=== PATIENT | female | born 1935 | race Caucasian/White ===

== ENCOUNTER 2017-05-22 16:55 | Emergency (ER) | payer MEDICARE, OTHER ==
[~2017-05-22] VITALS: Ht 165.1 cm; Wt 74.8 kg
[~2017-05-22 16:55] MED LIST: ACET325 PO; ALBU90OI6 INH; AMOCLA875 PO; ASPI81CH PO; ASPI81EC PO; AZIT250 PO; BENADRYL25 MG PO; CALCA500CH PO; CALCAVITD; CALCIUM; CALCIUM PO; CAPOTEN; CAPT25 PO; CAPT50 PO; CEPH500 PO; COMBIVENT RESPIM4 GM INH; CONESTTC VAG; CYAN100; CYAN1000 PO; DICMIS75EC PO; FAMO20 PO; FISH1000 PO; FLUSAL2505 IH; FLUSAL2505 INH; FURO20 PO; GUAI600T33 PO; Keflex500 MG PO; LEVSOD100 PO; LISI5 PO; Lopressor 25 mg25 MG PO; METPRE4DP PO; MOMENI; MULVITA PO; MYRBETRIQ25 MG PO; Millipred5 MG PO; Multivitamin1 EAC1 PO; NYST100P TOP; OCUVITE EYE +1 EACH PO; OMEG1CAP30 PO; PRED20 PO; SYNTHROID; Sleep Aid25 M1; TAMIFLU6 MG/1 ML PO; TIOT18; TIOT18 INH; TRAM50 PO; TROSPIUM CHLORI20 MG PO; TYLENOL PO; Ultram50 MG PO; VITAMIN B122500 MCG PO; [UNRECOGNIZED DRUG - OTHER] PO
[2017-05-22 18:03] LABS: BASOPHILS ABSOLUTE AUTO 0.02 K/mm3 (0.00-0.23); BASOPHILS PERCENT AUTO 0 % (0-2); EOSINOPHILS ABSOLUTE AUTO 0.02 K/mm3 (0.00-0.68); EOSINOPHILS PERCENT AUTO 0 % (0-6); Hematocrit 39.4 % (33.0-51.0); Hemoglobin 13.3 g/dL (11.5-16.0); IMMATURE GRAN ABSOLUTE AUTO 0.03 K/mm3 (0.00-0.10); IMMATURE GRAN PERCENT AUTO 0 % (0-1); LYMPHOCYTES ABSOLUTE AUTO 0.74 K/mm3 (0.84-5.20); LYMPHOCYTES PERCENT AUTO 8 % (21-46); MONOCYTES ABSOLUTE AUTO 0.76 K/mm3 (0.16-1.47); MONOCYTES PERCENT AUTO 8 % (4-13); Mean Corpuscular HGB 29.9 pg (26.0-34.0); Mean Corpuscular HGB Conc 33.8 g/dL (31.5-36.5); Mean Corpuscular Volume 89 fL (80-100); Mean Platelet Volume 10.4 fL (9.1-12.4); NEUTROPHILS ABSOLUTE AUTO 7.63 K/mm3 (1.96-9.15); NEUTROPHILS PERCENT AUTO 83 % (41-73); Platelet Count 157 K/mm3 (150-400); RDW Coefficient Variation 14.1 % (11.7-14.2); RDW Standard Deviation 45.1 fL (35.1-46.3); Red Blood Cell Count 4.45 M/mm3 (3.80-5.20)
[2017-05-22 18:30] LABS: Troponin I <0.015 ng/mL (0.000-0.040)
[2017-05-22 18:33] LABS: Alanine Aminotransfer (ALT/SGP 37 U/L (12-78); Albumin, Blood 3.5 g/dL (3.4-5.0); Alk Phos 108 U/L (50-136); Anion Gap 9 mmol/L (6-16); Aspartate Aminotrans (AST/SGOT 24 U/L (12-37); Bilirubin, Total 0.9 mg/dL (0.1-1.0); Blood Urea Nitrogen 14 mg/dL (8-24); Bun/Creatinine Ratio 15.4 (12.0-20.0); CO2, Blood 26 mmol/L (21-32); Calcium, Blood 8.8 mg/dL (8.5-10.1); Chloride, Blood 102 mmol/L (98-108); Creatinine, Blood 0.91 mg/dL (0.40-1.00); Globulin, Blood 3.4 g/dL (2.2-4.0); Glomerular Filtration Rate >60 (60-); Glucose, Blood 126 mg/dL (70-99); Potassium, Blood 3.8 mmol/L (3.5-5.5); Sodium, Blood 137 mmol/L (136-145); Total Protein, Blood 6.9 g/dL (6.4-8.2)
[2017-05-22] MEDS ORDERED: Zithromax250 MG PO (19:09)
== END 2017-05-22 19:25 | disposition home or self-care (01) ==
LOC: ER 16:55
PROVIDERS: Emergency Medicine
DX: J44.0 Chronic obstructive pulmonary disease with (acute) lower respiratory infection (principal); J18.9 Pneumonia, unspecified organism; J44.1 Chronic obstructive pulmonary disease with (acute) exacerbation; I11.0 Hypertensive heart disease with heart failure; I50.9 Heart failure, unspecified; E03.9 Hypothyroidism, unspecified; Z88.0 Allergy status to penicillin; Z88.5 Allergy status to narcotic agent; Z88.8 Allergy status to other drugs, medicaments and biological substances; Z79.899 Other long term (current) drug therapy; Z79.82 Long term (current) use of aspirin; Z79.52 Long term (current) use of systemic steroids; Z79.2 Long term (current) use of antibiotics; Z87.891 Personal history of nicotine dependence
CPT/HCPCS: 36415; 71046; 80053; 83880; 84484; 85025; 93005; 93010; 99284; J1100

== ENCOUNTER → 2017-05-27 | Outpatient (CLI) | payer MEDICARE, OTHER ==
[~2017-05-27] MED LIST changes: +Zithromax250 MG PO
[2017-05-27 15:35] LABS: Source, Urine Voided
[2017-05-27 16:44] LABS: Bilirubin, Urine Neg (Neg); Blood, Urine 1+ (Neg); Glucose Qualitative, Urine Neg (Neg); Ketones, Urine 1+ (Neg); Leukocyte Esterase, Urine 3+ (Neg); Nitrite, Urine Neg (Neg); Protein, Urine 2+ (Neg); Specific Gravity, Urine 1.015 (1.003-1.022); Urobilinogen, Urine NORM (Normal)
[2017-05-27 17:13] LABS: Appearance, Urine Hazy (Clear); Color, Urine Yellow (P-Yellow); White Blood Cells, Urine TNTC /hpf (0-5)
[2017-05-27 17:14] LABS: Bacteria Few /hpf; Squamous Epithelial Cells Few /hpf (Few)
== END | disposition home or self-care (01) ==
LOC: LAB 15:33 → LAB SHORT 15:33
PROVIDERS: Internal Medicine
DX: R30.0 Dysuria (principal)
CPT/HCPCS: 81001; 87077; 87086; 87186

== ENCOUNTER → 2017-06-05 | Outpatient (CLI) | payer MEDICARE, OTHER ==
[2017-06-05 13:50] LABS: Source, Urine Clean Catch
[2017-06-05 19:23] LABS: Appearance, Urine Hazy (Clear); Bilirubin, Urine Neg (Neg); Blood, Urine Neg (Neg); Color, Urine Yellow (P-Yellow); Glucose Qualitative, Urine Neg (Neg); Ketones, Urine Neg (Neg); Leukocyte Esterase, Urine 3+ (Neg); Nitrite, Urine Neg (Neg); Protein, Urine 1+ (Neg); Specific Gravity, Urine 1.015 (1.003-1.022); Urobilinogen, Urine NORM (Normal)
[2017-06-05 19:32] LABS: Amorphous Light (0-Heavy); Bacteria Few /hpf; Red Blood Cells, Urine 0-2 /hpf (0-2); Squamous Epithelial Cells Few /hpf (Few)
== END | disposition home or self-care (01) ==
LOC: LAB 13:46 → LAB SHORT 13:46 → EDSTATUS 06-04 09:35 → LAB FUT 06-04 09:35
PROVIDERS: Internal Medicine
DX: N39.0 Urinary tract infection, site not specified (principal)
CPT/HCPCS: 81001

== ENCOUNTER → 2017-06-19 | Outpatient (CLI) | payer MEDICARE, OTHER ==
[2017-06-19 08:41] LABS: Source, Urine Clean Catch
[2017-06-19 11:19] LABS: Bilirubin, Urine Neg (Neg); Blood, Urine Neg (Neg); Glucose Qualitative, Urine Neg (Neg); Ketones, Urine Neg (Neg); Leukocyte Esterase, Urine 1+ (Neg); Nitrite, Urine Neg (Neg); Protein, Urine Neg (Neg); Specific Gravity, Urine 1.015 (1.003-1.022); Urobilinogen, Urine NORM (Normal)
[2017-06-19 11:32] LABS: Appearance, Urine Clear (Clear); Color, Urine Pale Yellow (P-Yellow); Red Blood Cells, Urine Not Seen /hpf (0-2); Squamous Epithelial Cells Few /hpf (Few); Transitional Epithelial Cells Few /hpf (0-Rare)
[2017-06-19 11:33] LABS: Bacteria Mod /hpf
== END | disposition home or self-care (01) ==
LOC: LAB SHORT 08:38 → LAB 08:38
PROVIDERS: Internal Medicine
DX: N39.0 Urinary tract infection, site not specified (principal)
CPT/HCPCS: 81001; 87077; 87086; 87186

== ENCOUNTER 2018-04-24 12:58 | Emergency (ER) | payer MEDICARE, OTHER ==
[~2018-04-24] VITALS: Ht 160 cm; Wt 74.8 kg
[2018-04-24] MEDS ORDERED: CEPH250A PO (13:20)
[2018-04-24] MEDS ORDERED: MYRBETRIQ50 MG PO (13:20)
[2018-04-24] MEDS ORDERED: SPIRIVA RESPIMAT4 GM INH (13:21)
[2018-04-24] MEDS ORDERED: DICLOFENAC-MIS1 EAC3 PO (13:22)
[2018-04-24] MEDS ORDERED: Ventolin/Prove6.7 GM INH (13:23)
[2018-04-24 13:40] LABS: BASOPHILS ABSOLUTE AUTO 0.05 K/mm3 (0.00-0.23); BASOPHILS PERCENT AUTO 1 % (0-2); EOSINOPHILS ABSOLUTE AUTO 0.19 K/mm3 (0.00-0.68); EOSINOPHILS PERCENT AUTO 2 % (0-6); Hemoglobin 13.8 g/dL (11.5-16.0); IMMATURE GRAN ABSOLUTE AUTO 0.03 K/mm3 (0.00-0.10); IMMATURE GRAN PERCENT AUTO 0 % (0-1); LYMPHOCYTES ABSOLUTE AUTO 1.16 K/mm3 (0.84-5.20); LYMPHOCYTES PERCENT AUTO 11 % (21-46); MONOCYTES ABSOLUTE AUTO 0.86 K/mm3 (0.16-1.47); MONOCYTES PERCENT AUTO 8 % (4-13); Mean Corpuscular HGB Conc 33.7 g/dL (31.5-36.5); Mean Corpuscular Volume 92 fL (80-100); Mean Platelet Volume 10.3 fL (9.1-12.4); NEUTROPHILS PERCENT AUTO 78 % (41-73); Platelet Count 251 K/mm3 (150-400); RDW Coefficient Variation 14.4 % (11.7-14.2); RDW Standard Deviation 47.8 fL (35.1-46.3); Red Blood Cell Count 4.45 M/mm3 (3.80-5.20); White Blood Cell Count 10.59 K/mm3 (4.00-11.30)
[2018-04-24 13:59] LABS: Alanine Aminotransfer (ALT/SGP 26 U/L (12-78); Albumin, Blood 3.8 g/dL (3.4-5.0); Albumin/Globulin Ratio 1.1 (0.8-1.8); Alk Phos 93 U/L (50-136); Anion Gap 8 mmol/L (6-16); Aspartate Aminotrans (AST/SGOT 15 U/L (12-37); Bilirubin, Total 0.5 mg/dL (0.1-1.0); Blood Urea Nitrogen 26 mg/dL (8-24); Bun/Creatinine Ratio 22.6 (12.0-20.0); CO2, Blood 25 mmol/L (21-32); Chloride, Blood 105 mmol/L (98-108); Creatinine, Blood 1.15 mg/dL (0.40-1.00); Globulin, Blood 3.4 g/dL (2.2-4.0); Glomerular Filtration Rate 48 (60-); Glucose, Blood 135 mg/dL (70-99); Potassium, Blood 4.1 mmol/L (3.5-5.5); Sodium, Blood 138 mmol/L (136-145); Total Protein, Blood 7.2 g/dL (6.4-8.2); Troponin I <0.015 ng/mL (0.000-0.040)
[2018-04-24 15:50] LABS: Appearance, Urine Clear (Clear); Bilirubin, Urine Neg (Neg); Blood, Urine Neg (Neg); Color, Urine Yellow (P-Yellow); Glucose Qualitative, Urine Neg (Neg); Ketones, Urine 1+ (Neg); Leukocyte Esterase, Urine 2+ (Neg); Nitrite, Urine Neg (Neg); Protein, Urine Neg (Neg); Source, Urine Catheter; Specific Gravity, Urine 1.015 (1.003-1.022); Urobilinogen, Urine NORM (Normal)
[2018-04-24 16:40] LABS: Bacteria Few /hpf; Red Blood Cells, Urine Not Seen /hpf (0-2); Squamous Epithelial Cells Few /hpf (Few); White Blood Cells, Urine 0-2 /hpf (0-5)
== END 2018-04-24 17:37 | disposition home or self-care (01) ==
LOC: ER 12:58
PROVIDERS: Emergency Medicine
DX: E86.0 Dehydration (principal); J44.9 Chronic obstructive pulmonary disease, unspecified; I11.0 Hypertensive heart disease with heart failure; I50.30 Unspecified diastolic (congestive) heart failure; E03.9 Hypothyroidism, unspecified; Z88.0 Allergy status to penicillin; Z88.5 Allergy status to narcotic agent; Z88.1 Allergy status to other antibiotic agents; Z88.8 Allergy status to other drugs, medicaments and biological substances; Z79.899 Other long term (current) drug therapy; Z87.891 Personal history of nicotine dependence; X37 Cataclysmic storm
CPT/HCPCS: 36415; 71046; 80053; 81001; 84484; 85025; 87077; 87086; 87186; 93005; 93010; 96360; 99285-25; J7030

== ENCOUNTER → 2018-12-08 | Outpatient (CLI) | payer MEDICARE, OTHER ==
[~2018-12-08] MED LIST changes: +CEPH250A PO; +DICLOFENAC-MIS1 EAC3 PO; +MYRBETRIQ50 MG PO; +SPIRIVA RESPIMAT4 GM INH; +Ventolin/Prove6.7 GM INH
== END | disposition home or self-care (01) ==
LOC: LAB 12:00 → LAB SHORT 12:00 → LAB FUT 12-02 10:50
DX: R30.0 Dysuria (principal)
CPT/HCPCS: 87077; 87086; 87186

== ENCOUNTER → 2019-01-30 | Outpatient (CLI) | payer MEDICARE, OTHER ==
[2019-01-30 08:41] LABS: Source, Urine Clean Catch
[2019-01-30 11:49] LABS: Bilirubin, Urine Neg (Neg); Blood, Urine Neg (Neg); Glucose Qualitative, Urine Neg (Neg); Ketones, Urine Neg (Neg); Leukocyte Esterase, Urine 2+ (Neg); Nitrite, Urine Neg (Neg); Protein, Urine Neg (Neg); Urobilinogen, Urine NORM (Normal)
[2019-01-30 12:11] LABS: Appearance, Urine Clear (Clear); Color, Urine Yellow (P-Yellow)
[2019-01-30 12:12] LABS: Bacteria Few /hpf; Red Blood Cells, Urine 0-2 /hpf (0-2); Squamous Epithelial Cells Few /hpf (Few); Yeast/Fungi Urine Rare /hpf
== END | disposition home or self-care (01) ==
LOC: LAB 08:36 → LAB SHORT 08:36
PROVIDERS: Internal Medicine
DX: R31.29 Other microscopic hematuria (principal)
CPT/HCPCS: 81001; 87077; 87086; 87186; 88108

== ENCOUNTER → 2019-03-04 | Outpatient (CLI) | payer MEDICARE, OTHER ==
[2019-03-04 11:58] LABS: Source, Urine Clean Catch
[2019-03-04 19:10] LABS: Appearance, Urine Clear (Clear); Bilirubin, Urine Neg (Neg); Blood, Urine Neg (Neg); Color, Urine Yellow (P-Yellow); Glucose Qualitative, Urine Neg (Neg); Ketones, Urine Neg (Neg); Leukocyte Esterase, Urine Neg (Neg); Nitrite, Urine Neg (Neg); Protein, Urine Neg (Neg); Specific Gravity, Urine 1.015 (1.003-1.022); Urobilinogen, Urine NORM (Normal)
== END | disposition home or self-care (01) ==
LOC: LAB 11:57 → LAB SHORT 11:57 → LAB FUT 02-05 12:30
PROVIDERS: Internal Medicine
DX: N39.0 Urinary tract infection, site not specified (principal)
CPT/HCPCS: 81003

== ENCOUNTER → 2019-08-13 | Outpatient (CLI) | payer MEDICARE, OTHER ==
[2019-08-13 13:26] LABS: Leukocyte Esterase, Urine 2+ (Neg); Nitrite, Urine Neg (Neg); Protein, Urine 1+ (Neg); Specific Gravity, Urine 1.015 (1.003-1.022)
[2019-08-13 13:27] LABS: Appearance, Urine Clear (Clear); Bilirubin, Urine Neg (Neg); Blood, Urine Neg (Neg); Color, Urine Yellow (P-Yellow); Glucose Qualitative, Urine Neg (Neg); Ketones, Urine 1+ (Neg); Urobilinogen, Urine NORM (Normal)
[2019-08-13 13:29] LABS: Bacteria Not Seen /hpf; Red Blood Cells, Urine Not Seen /hpf (0-2); Squamous Epithelial Cells Few /hpf (Few)
[2019-08-13 13:30] LABS: Yeast/Fungi Urine Rare /hpf
== END ==
LOC: LAB 09:24 → LAB SHORT 09:24 → LAB FUT 08-11 16:30
PROVIDERS: Internal Medicine
DX: N39.0 Urinary tract infection, site not specified (principal)
CPT/HCPCS: 81001; 87077; 87086; 87186

== ENCOUNTER 2019-09-09 08:35 | Emergency (ER) | payer MEDICARE, OTHER ==
[~2019-09-09] VITALS: Ht 157.5 cm; Wt 74.4 kg
== END 2019-09-09 11:23 | disposition home or self-care (01) ==
LOC: ER 08:35
DX: L98.429 Non-pressure chronic ulcer of back with unspecified severity (principal); R60.0 Localized edema; Z88.0 Allergy status to penicillin; Z88.5 Allergy status to narcotic agent; Z88.8 Allergy status to other drugs, medicaments and biological substances; Z79.899 Other long term (current) drug therapy; Z79.2 Long term (current) use of antibiotics; I11.0 Hypertensive heart disease with heart failure; I50.9 Heart failure, unspecified; J44.9 Chronic obstructive pulmonary disease, unspecified; E03.9 Hypothyroidism, unspecified; Z87.891 Personal history of nicotine dependence
CPT/HCPCS: 76800; 93971; 99284-25

== ENCOUNTER → 2019-09-15 | Outpatient (CLI) | payer MEDICARE, OTHER ==
[2019-09-15 10:11] LABS: Source, Urine Clean Catch
[2019-09-15 12:22] LABS: Appearance, Urine Clear (Clear); Bilirubin, Urine Neg (Neg); Blood, Urine Neg (Neg); Color, Urine Yellow (P-Yellow); Glucose Qualitative, Urine Neg (Neg); Ketones, Urine Neg (Neg); Leukocyte Esterase, Urine Neg (Neg); Nitrite, Urine Neg (Neg); Protein, Urine Neg (Neg); Specific Gravity, Urine 1.005 (1.003-1.022); Urobilinogen, Urine NORM (Normal); pH, Urine 6.5 (5.0-8.0)
== END ==
LOC: LAB SHORT 10:10 → LAB 10:10 → LAB FUT 09-13 08:40
PROVIDERS: Internal Medicine
DX: I10 Essential (primary) hypertension (principal); R06.00 Dyspnea, unspecified; R10.9 Unspecified abdominal pain
CPT/HCPCS: 81003

== ENCOUNTER 2019-11-18 12:03 | Emergency (ER) | payer MEDICARE, OTHER ==
[~2019-11-18] VITALS: Ht 162.6 cm; Wt 70.3 kg
== END 2019-11-18 15:30 | disposition home or self-care (01) ==
LOC: ER 12:03
DX: S81.812A Laceration without foreign body, left lower leg, initial encounter (principal); J44.9 Chronic obstructive pulmonary disease, unspecified; I11.0 Hypertensive heart disease with heart failure; I50.30 Unspecified diastolic (congestive) heart failure; E03.9 Hypothyroidism, unspecified; Z88.0 Allergy status to penicillin; Z88.5 Allergy status to narcotic agent; Z88.1 Allergy status to other antibiotic agents; Z88.8 Allergy status to other drugs, medicaments and biological substances; Z79.899 Other long term (current) drug therapy; Z87.891 Personal history of nicotine dependence; W45.8XXA Other foreign body or object entering through skin, initial encounter
CPT/HCPCS: 99282

== ENCOUNTER 2019-11-23 11:08 | Emergency (ER) | payer MEDICARE, OTHER ==
[~2019-11-23] VITALS: Ht 160 cm; Wt 70.3 kg
[2019-11-23 12:46] LABS: BASOPHILS ABSOLUTE AUTO 0.05 K/mm3 (0.00-0.23); BASOPHILS PERCENT AUTO 1 % (0-2); EOSINOPHILS ABSOLUTE AUTO 0.28 K/mm3 (0.00-0.68); EOSINOPHILS PERCENT AUTO 3 % (0-6); Hematocrit 37.7 % (33.0-51.0); Hemoglobin 12.2 g/dL (11.5-16.0); IMMATURE GRAN ABSOLUTE AUTO 0.05 K/mm3 (0.00-0.10); IMMATURE GRAN PERCENT AUTO 1 % (0-1); LYMPHOCYTES ABSOLUTE AUTO 1.26 K/mm3 (0.84-5.20); LYMPHOCYTES PERCENT AUTO 12 % (21-46); MONOCYTES ABSOLUTE AUTO 0.95 K/mm3 (0.16-1.47); MONOCYTES PERCENT AUTO 9 % (4-13); Mean Corpuscular HGB 31.3 pg (26.0-34.0); Mean Corpuscular HGB Conc 32.4 g/dL (31.5-36.5); Mean Corpuscular Volume 97 fL (80-100); Mean Platelet Volume 10.4 fL (9.1-12.4); NEUTROPHILS ABSOLUTE AUTO 7.85 K/mm3 (1.96-9.15); NEUTROPHILS PERCENT AUTO 75 % (41-73); Platelet Count 244 K/mm3 (150-400); RDW Coefficient Variation 13.9 % (11.7-14.2); RDW Standard Deviation 49.8 fL (35.1-46.3); White Blood Cell Count 10.44 K/mm3 (4.00-11.30)
[2019-11-23 12:54] LABS: Anion Gap 5 mmol/L (6-16); Blood Urea Nitrogen 23 mg/dL (8-24); CO2, Blood 26 mmol/L (21-32); Calcium, Blood 8.9 mg/dL (8.5-10.1); Chloride, Blood 104 mmol/L (98-108); Creatinine, Blood 0.89 mg/dL (0.40-1.00); Glomerular Filtration Rate >60 (60-); Glucose, Blood 104 mg/dL (70-99); Potassium, Blood 4.7 mmol/L (3.5-5.5); Sodium, Blood 135 mmol/L (136-145)
[2019-11-23] MEDS ORDERED: SULTRIDS PO (13:10)
[2019-11-23] MEDS ORDERED: CEPHALEXIN500 M1 PO (13:10)
== END 2019-11-23 13:25 | disposition home or self-care (01) ==
LOC: ER 11:08
PROVIDERS: Emergency Medicine
DX: L03.116 Cellulitis of left lower limb (principal); S81.812A Laceration without foreign body, left lower leg, initial encounter; I11.0 Hypertensive heart disease with heart failure; J44.9 Chronic obstructive pulmonary disease, unspecified; I50.30 Unspecified diastolic (congestive) heart failure; E03.9 Hypothyroidism, unspecified; Z88.0 Allergy status to penicillin; Z88.5 Allergy status to narcotic agent; Z88.1 Allergy status to other antibiotic agents; Z88.8 Allergy status to other drugs, medicaments and biological substances; Z79.51 Long term (current) use of inhaled steroids; Z79.899 Other long term (current) drug therapy; Z87.891 Personal history of nicotine dependence; X58.XXXA Exposure to other specified factors, initial encounter
CPT/HCPCS: 36415; 80048; 85025; 96365; 99283-25; J0690

== ENCOUNTER 2019-11-27 11:02 | Inpatient (IN) | payer MEDICARE, OTHER ==
[~2019-11-27] VITALS: Ht 160 cm; Wt 72.8 kg
[~2019-11-27 11:02] MED LIST changes: -CAPT50 PO; -CEPH250A PO; +CEPHALEXIN500 M1 PO; -FLUSAL2505 INH; +SULTRIDS PO; -Ventolin/Prove6.7 GM INH
[2019-11-27 12:06] LABS: BASOPHILS ABSOLUTE AUTO 0.04 K/mm3 (0.00-0.23); BASOPHILS PERCENT AUTO 0 % (0-2); EOSINOPHILS ABSOLUTE AUTO 0.06 K/mm3 (0.00-0.68); EOSINOPHILS PERCENT AUTO 1 % (0-6); IMMATURE GRAN ABSOLUTE AUTO 0.05 K/mm3 (0.00-0.10); IMMATURE GRAN PERCENT AUTO 0 % (0-1); LYMPHOCYTES ABSOLUTE AUTO 0.68 K/mm3 (0.84-5.20); LYMPHOCYTES PERCENT AUTO 6 % (21-46); MONOCYTES ABSOLUTE AUTO 0.87 K/mm3 (0.16-1.47); MONOCYTES PERCENT AUTO 7 % (4-13); Mean Corpuscular HGB 31.7 pg (26.0-34.0); Mean Corpuscular HGB Conc 33.3 g/dL (31.5-36.5); Mean Corpuscular Volume 95 fL (80-100); Mean Platelet Volume 9.8 fL (9.1-12.4); NEUTROPHILS ABSOLUTE AUTO 10.49 K/mm3 (1.96-9.15); NEUTROPHILS PERCENT AUTO 86 % (41-73); Platelet Count 239 K/mm3 (150-400); RDW Coefficient Variation 13.7 % (11.7-14.2); RDW Standard Deviation 48.1 fL (35.1-46.3); Red Blood Cell Count 3.78 M/mm3 (3.80-5.20); White Blood Cell Count 12.19 K/mm3 (4.00-11.30)
[2019-11-27 12:26] LABS: Albumin, Blood 3.1 g/dL (3.4-5.0); Albumin/Globulin Ratio 0.8 (0.8-1.8); Bilirubin, Total 0.3 mg/dL (0.1-1.0); Bun/Creatinine Ratio 21.1 (12.0-20.0); Calcium, Blood 8.8 mg/dL (8.5-10.1); Creatinine, Blood 1.14 mg/dL (0.40-1.00); Globulin, Blood 3.8 g/dL (2.2-4.0); Potassium, Blood 4.8 mmol/L (3.5-5.5); Total Protein, Blood 6.9 g/dL (6.4-8.2)
[2019-11-27] MEDS ORDERED: CAPT50 PO (16:06)
[2019-11-27] MEDS ORDERED: TRAM50 PO (16:06)
[2019-11-27] MEDS ORDERED: CEPH250A PO (16:06)
[2019-11-27] MEDS ORDERED: INCRUSE ELLIPTA 62.5 INH (16:08)
[2019-11-27] MEDS ORDERED: LEVSOD100 PO (16:09)
[2019-11-27] MEDS ORDERED: FLUT1DIS5 INH (16:09)
[2019-11-27] MEDS ORDERED: Ventolin/Prove6.7 GM INH (16:12)
[2019-11-27] MEDS ORDERED: PRESERVISION A1 EACH PO (16:29)
--- NOTE | 2019-11-27 19:13 | NUR ---
pt admitted to room tonite just prior to shift change. pt a/o pleasant talking to friend . brought coffee for both. she quite appreciative. pt states some pain in hip. lungs clear, resp easy, unlabored. on r.a. h/r reg, no murmer noted. no tele. oriented to room. pt lying in bed call llite in reach, bed in low position, calls approp
[2019-11-28 04:41] LABS: BASOPHILS ABSOLUTE AUTO 0.04 K/mm3 (0.00-0.23); BASOPHILS PERCENT AUTO 0 % (0-2); EOSINOPHILS ABSOLUTE AUTO 0.21 K/mm3 (0.00-0.68); EOSINOPHILS PERCENT AUTO 2 % (0-6); Hematocrit 34.1 % (33.0-51.0); Hemoglobin 11.4 g/dL (11.5-16.0); IMMATURE GRAN ABSOLUTE AUTO 0.03 K/mm3 (0.00-0.10); IMMATURE GRAN PERCENT AUTO 0 % (0-1); LYMPHOCYTES ABSOLUTE AUTO 1.03 K/mm3 (0.84-5.20); LYMPHOCYTES PERCENT AUTO 11 % (21-46); MONOCYTES ABSOLUTE AUTO 1.06 K/mm3 (0.16-1.47); MONOCYTES PERCENT AUTO 11 % (4-13); Mean Corpuscular HGB 31.2 pg (26.0-34.0); Mean Corpuscular HGB Conc 33.4 g/dL (31.5-36.5); Mean Corpuscular Volume 93 fL (80-100); Mean Platelet Volume 10.1 fL (9.1-12.4); NEUTROPHILS ABSOLUTE AUTO 7.16 K/mm3 (1.96-9.15); NEUTROPHILS PERCENT AUTO 75 % (41-73); Platelet Count 220 K/mm3 (150-400); RDW Coefficient Variation 13.5 % (11.7-14.2); RDW Standard Deviation 46.6 fL (35.1-46.3); Red Blood Cell Count 3.65 M/mm3 (3.80-5.20); White Blood Cell Count 9.53 K/mm3 (4.00-11.30)
[2019-11-28 05:02] LABS: Anion Gap 6 mmol/L (6-16); Blood Urea Nitrogen 16 mg/dL (8-24); Bun/Creatinine Ratio 19.6 (12.0-20.0); CO2, Blood 22 mmol/L (21-32); Calcium, Blood 8.5 mg/dL (8.5-10.1); Chloride, Blood 108 mmol/L (98-108); Creatinine, Blood 0.82 mg/dL (0.40-1.00); Glomerular Filtration Rate >60 (60-); Glucose, Blood 84 mg/dL (70-99); Potassium, Blood 4.7 mmol/L (3.5-5.5); Sodium, Blood 136 mmol/L (136-145)
--- NOTE | 2019-11-28 05:50 | NUR ---
SHIFT SUMMARY PT WAS NEW ER ADMIT JUST BEFORE SHIFT CHANGE, A&O, VERY PLEASANT & COOPERATIVE, NO C/O ANY KIND, REDRESSED LLE WOUND AND ADDED PICS TO CHART, PT HAD A TEGADERM OVER WOUND WHICH SHE ASKED TO BE LEFT IN PLACE UNTIL THE "DOCTOR REMOVED IT TOMORROW", STATES THE WOUND IS NOT PAINFUL UNLESS TOUCHED, LLE ELEVEATED T/O THE NIGHT,PT SLEPT WELL & IS SLEEPING AT THIS TIME, CALL LIGHT IN REACH, WILL CONT TO MONITOR UNTIL REPORT GIVEN TO DAY RN.
--- NOTE | 2019-11-28 18:33 | NUR ---
SHIFT SUMMARY MIGUEL VERY PLEASANT THIS SHIFT, GOT TYLENOL FOR PAIN TO GOOD EFFECT, ALSO USING HEAT PACK. SBA TO BR WITH WALKER, CALLING APPROPRIATELY. WOUND ON RLE OPEN TO AIR WITH MEDIPORE OVER IT PER DR LOPES. VERY SCANT DRAINAGE. CONTINENT / SOME URINARY INCONTINENCE. WCTM
--- NOTE | 2019-11-28 19:35 | NUR ---
RECEIVED BEDSIDE REPORT FROM JAMILAH BANUELOS. NO NEEDS AT THIS TIME. WILL MONITOR AND PROVIDE CARE T/O SHIFT. CALL LT IN REACH.
--- NOTE | 2019-11-29 00:44 | NUR ---
FOOT CRADLE PLACED FOR PT COMFORT. CALL LT IN REACH.
--- NOTE | 2019-11-29 04:11 | NUR ---
SHIFT SUMMARY: PT ALERT AND ORIENTED. USES CALL LIGHT APPROPRIATELY. MEDICATED ONCE WITH SCHEDULED TRAMADOL FOR LLE PAIN. PAIN HAD WORSENED AFTER AMBULATING TO THE BATHROOM AND BACK TO BED ASSISTED BY THE SAFE AND VAULT MECHANIC. CONTINUED ABX FOR LLE. PER PT STATES IT'S LOOKING A LOT BETTER. DR WILL EVALUATE AND PROVIDE CARE TO OPENED AREA TODAY PER PT. FOOT CRADLE PLACED TO HOLD BLANKETS OFF FROM LEFT LEG FOR COMFORT. NO ACUTE CHANGES. WILL CONTINUE TO MONITOR AND PROVIDE CARE UNTIL SHIFT REPORT. CALL LT IN REACH.
[2019-11-29] MEDS ORDERED: SULTRIDS PO (12:46)
--- NOTE | 2019-11-29 15:18 | NUR ---
patient dc'd home at 0595 with friend via wheelchair
== END 2019-11-29 14:42 | disposition home health service (06) | DRG 603 ==
LOC: ER 11:02 → MEDS 11:03
PROVIDERS: Family Medicine; Physician Assistant; ADMIT Hospitalist
DX: L03.116 Cellulitis of left lower limb (principal); I50.30 Unspecified diastolic (congestive) heart failure; J44.9 Chronic obstructive pulmonary disease, unspecified; I10 Essential (primary) hypertension; E03.9 Hypothyroidism, unspecified; I11.0 Hypertensive heart disease with heart failure; M19.90 Unspecified osteoarthritis, unspecified site; Z87.891 Personal history of nicotine dependence
CPT/HCPCS: 36415; 73700; 80048; 80053; 83605; 85025; 93005; 93010; 94640; 94760; 96366; 96372; 96375; 96376; 97161; 99285-25; A9270; A9270-GY; G0378; J0690; J1650; J3370

== ENCOUNTER 2019-12-04 11:58 | Day surgery (SDC) | payer MEDICARE, OTHER ==
[~2019-12-04 11:58] MED LIST changes: +CAPT50 PO; +CEPH250A PO; +FLUT1DIS5 INH; +INCRUSE ELLIPTA 62.5 INH; +PRESERVISION A1 EACH PO; +Ventolin/Prove6.7 GM INH
== END 2019-12-04 22:34 | disposition home or self-care (01) ==
LOC: WOUND 11:58
DX: L03.116 Cellulitis of left lower limb (principal); S81.802A Unspecified open wound, left lower leg, initial encounter; I87.2 Venous insufficiency (chronic) (peripheral); J44.9 Chronic obstructive pulmonary disease, unspecified; I73.9 Peripheral vascular disease, unspecified; Z88.5 Allergy status to narcotic agent; Z88.0 Allergy status to penicillin; Z79.899 Other long term (current) drug therapy
CPT/HCPCS: G0463

== ENCOUNTER 2019-12-10 00:14 | Day surgery (SDC) | payer MEDICARE, OTHER | END 2019-12-10 22:54 | disposition home or self-care (01) | LOC: WOUND 00:14 | DX: L03.116 Cellulitis of left lower limb (principal); S81.802A Unspecified open wound, left lower leg, initial encounter; I87.2 Venous insufficiency (chronic) (peripheral); I73.9 Peripheral vascular disease, unspecified; Z79.899 Other long term (current) drug therapy | CPT/HCPCS: G0463 ==

== ENCOUNTER 2019-12-17 00:46 | Day surgery (SDC) | payer MEDICARE, OTHER | END 2019-12-17 12:00 | disposition home or self-care (01) | LOC: WOUND 00:46 | DX: S81.802A Unspecified open wound, left lower leg, initial encounter (principal); I87.2 Venous insufficiency (chronic) (peripheral); I73.9 Peripheral vascular disease, unspecified; I10 Essential (primary) hypertension; E03.9 Hypothyroidism, unspecified; J44.9 Chronic obstructive pulmonary disease, unspecified; Z79.899 Other long term (current) drug therapy; X58.XXXA Exposure to other specified factors, initial encounter ==

== ENCOUNTER 2019-12-24 00:18 | Day surgery (SDC) | payer MEDICARE, OTHER | END 2019-12-24 23:14 | disposition home or self-care (01) | LOC: WOUND 00:18 | DX: L97.822 Non-pressure chronic ulcer of other part of left lower leg with fat layer exposed (principal); I87.2 Venous insufficiency (chronic) (peripheral); I73.9 Peripheral vascular disease, unspecified; I10 Essential (primary) hypertension; E03.9 Hypothyroidism, unspecified; J44.9 Chronic obstructive pulmonary disease, unspecified; Z79.899 Other long term (current) drug therapy | CPT/HCPCS: G0463 ==

== ENCOUNTER 2019-12-31 08:37 | Day surgery (SDC) | payer MEDICARE, OTHER | END 2019-12-31 23:34 | disposition home or self-care (01) | LOC: WOUND 08:37 | DX: L03.116 Cellulitis of left lower limb (principal); I96 Gangrene, not elsewhere classified; L97.822 Non-pressure chronic ulcer of other part of left lower leg with fat layer exposed; I87.2 Venous insufficiency (chronic) (peripheral); I10 Essential (primary) hypertension; E03.9 Hypothyroidism, unspecified; J44.9 Chronic obstructive pulmonary disease, unspecified; H26.9 Unspecified cataract; M19.90 Unspecified osteoarthritis, unspecified site; Z79.52 Long term (current) use of systemic steroids; Z79.51 Long term (current) use of inhaled steroids; Z79.899 Other long term (current) drug therapy; Z87.891 Personal history of nicotine dependence ==

== ENCOUNTER 2020-01-07 00:16 | Day surgery (SDC) | payer MEDICARE, OTHER | END 2020-01-07 23:10 | disposition home or self-care (01) | LOC: WOUND 00:16 | DX: I96 Gangrene, not elsewhere classified (principal); L97.822 Non-pressure chronic ulcer of other part of left lower leg with fat layer exposed; L03.116 Cellulitis of left lower limb; I11.0 Hypertensive heart disease with heart failure; I50.9 Heart failure, unspecified; H26.9 Unspecified cataract; E03.9 Hypothyroidism, unspecified; J44.9 Chronic obstructive pulmonary disease, unspecified; M19.90 Unspecified osteoarthritis, unspecified site; Z88.0 Allergy status to penicillin; Z88.5 Allergy status to narcotic agent; Z91.041 Radiographic dye allergy status; Z79.51 Long term (current) use of inhaled steroids; Z79.2 Long term (current) use of antibiotics; Z79.899 Other long term (current) drug therapy; Z87.891 Personal history of nicotine dependence ==

== ENCOUNTER 2020-01-11 01:19 | Day surgery (SDC) | payer MEDICARE, OTHER | END 2020-01-11 23:06 | disposition home or self-care (01) | LOC: WOUND 01:19 | DX: L97.822 Non-pressure chronic ulcer of other part of left lower leg with fat layer exposed (principal); I87.2 Venous insufficiency (chronic) (peripheral); I73.9 Peripheral vascular disease, unspecified ==

== ENCOUNTER 2020-01-14 00:19 | Day surgery (SDC) | payer MEDICARE, OTHER | END 2020-01-14 22:50 | disposition home or self-care (01) | LOC: WOUND 00:19 | DX: L97.822 Non-pressure chronic ulcer of other part of left lower leg with fat layer exposed (principal); I87.2 Venous insufficiency (chronic) (peripheral); I73.9 Peripheral vascular disease, unspecified; I10 Essential (primary) hypertension; E03.9 Hypothyroidism, unspecified; J44.9 Chronic obstructive pulmonary disease, unspecified; Z79.899 Other long term (current) drug therapy ==

== ENCOUNTER 2020-01-20 03:09 | Day surgery (SDC) | payer MEDICARE, OTHER | END 2020-01-20 23:27 | disposition home or self-care (01) | LOC: WOUND 03:09 | DX: L97.822 Non-pressure chronic ulcer of other part of left lower leg with fat layer exposed (principal); L03.116 Cellulitis of left lower limb; I87.2 Venous insufficiency (chronic) (peripheral); H26.9 Unspecified cataract; J44.9 Chronic obstructive pulmonary disease, unspecified; M19.90 Unspecified osteoarthritis, unspecified site; Z79.51 Long term (current) use of inhaled steroids; Z79.899 Other long term (current) drug therapy; Z88.5 Allergy status to narcotic agent; Z91.041 Radiographic dye allergy status ==

== ENCOUNTER 2020-02-02 00:29 | Day surgery (SDC) | payer MEDICARE, OTHER | END 2020-02-02 22:35 | disposition home or self-care (01) | LOC: WOUND | DX: L03.116 Cellulitis of left lower limb (principal); S51.811A Laceration without foreign body of right forearm, initial encounter; L97.822 Non-pressure chronic ulcer of other part of left lower leg with fat layer exposed; I96 Gangrene, not elsewhere classified; I87.2 Venous insufficiency (chronic) (peripheral); I10 Essential (primary) hypertension; E78.5 Hyperlipidemia, unspecified; M19.90 Unspecified osteoarthritis, unspecified site; H26.9 Unspecified cataract; J44.9 Chronic obstructive pulmonary disease, unspecified; Z88.5 Allergy status to narcotic agent; Z91.041 Radiographic dye allergy status; Z79.899 Other long term (current) drug therapy; X58.XXXA Exposure to other specified factors, initial encounter ==

== ENCOUNTER 2020-02-10 00:24 | Day surgery (SDC) | payer MEDICARE, OTHER | END 2020-02-10 22:45 | disposition home or self-care (01) | LOC: WOUND 00:24 | DX: L03.116 Cellulitis of left lower limb (principal); L97.822 Non-pressure chronic ulcer of other part of left lower leg with fat layer exposed; S51.811D Laceration without foreign body of right forearm, subsequent encounter; I96 Gangrene, not elsewhere classified; I87.2 Venous insufficiency (chronic) (peripheral); I70.202 Unspecified atherosclerosis of native arteries of extremities, left leg; I10 Essential (primary) hypertension; E03.9 Hypothyroidism, unspecified; J44.9 Chronic obstructive pulmonary disease, unspecified; H26.9 Unspecified cataract; M19.90 Unspecified osteoarthritis, unspecified site; Z88.0 Allergy status to penicillin; Z88.5 Allergy status to narcotic agent; Z91.041 Radiographic dye allergy status; Z79.51 Long term (current) use of inhaled steroids; Z79.899 Other long term (current) drug therapy; X58.XXXD Exposure to other specified factors, subsequent encounter ==

== ENCOUNTER 2020-02-17 06:48 | Day surgery (SDC) | payer MEDICARE, OTHER | END 2020-02-17 22:43 | disposition home or self-care (01) | LOC: WOUND 06:48 | DX: L03.116 Cellulitis of left lower limb (principal); S51.811D Laceration without foreign body of right forearm, subsequent encounter; L97.822 Non-pressure chronic ulcer of other part of left lower leg with fat layer exposed; I96 Gangrene, not elsewhere classified; I10 Essential (primary) hypertension; E03.9 Hypothyroidism, unspecified; J44.9 Chronic obstructive pulmonary disease, unspecified; I87.2 Venous insufficiency (chronic) (peripheral); I70.202 Unspecified atherosclerosis of native arteries of extremities, left leg; H26.9 Unspecified cataract; M19.90 Unspecified osteoarthritis, unspecified site; Z91.041 Radiographic dye allergy status; Z88.5 Allergy status to narcotic agent; Z79.51 Long term (current) use of inhaled steroids; Z79.899 Other long term (current) drug therapy; W22.8XXD Striking against or struck by other objects, subsequent encounter ==

== ENCOUNTER 2020-02-24 01:21 | Day surgery (SDC) | payer MEDICARE, OTHER | END 2020-02-24 22:58 | disposition home or self-care (01) | LOC: WOUND 01:21 | DX: L97.822 Non-pressure chronic ulcer of other part of left lower leg with fat layer exposed (principal); L03.116 Cellulitis of left lower limb; S51.801D Unspecified open wound of right forearm, subsequent encounter; I70.202 Unspecified atherosclerosis of native arteries of extremities, left leg; I87.2 Venous insufficiency (chronic) (peripheral); I10 Essential (primary) hypertension; J44.9 Chronic obstructive pulmonary disease, unspecified; E03.9 Hypothyroidism, unspecified ==

== ENCOUNTER 2020-03-02 00:40 | Day surgery (SDC) | payer MEDICARE, OTHER | END 2020-03-02 22:39 | disposition home or self-care (01) | LOC: WOUND 00:40 | DX: L97.822 Non-pressure chronic ulcer of other part of left lower leg with fat layer exposed (principal); S51.801D Unspecified open wound of right forearm, subsequent encounter; I70.202 Unspecified atherosclerosis of native arteries of extremities, left leg; I87.2 Venous insufficiency (chronic) (peripheral); I10 Essential (primary) hypertension; E03.9 Hypothyroidism, unspecified; J44.9 Chronic obstructive pulmonary disease, unspecified; Z79.2 Long term (current) use of antibiotics | CPT/HCPCS: A9270 ==

== ENCOUNTER 2020-03-09 00:23 | Day surgery (SDC) | payer MEDICARE, OTHER | END 2020-03-09 22:45 | disposition home or self-care (01) | LOC: WOUND 00:23 | DX: I96 Gangrene, not elsewhere classified (principal); L97.822 Non-pressure chronic ulcer of other part of left lower leg with fat layer exposed; I70.248 Atherosclerosis of native arteries of left leg with ulceration of other part of lower leg; L03.116 Cellulitis of left lower limb; I87.2 Venous insufficiency (chronic) (peripheral); I10 Essential (primary) hypertension; E03.9 Hypothyroidism, unspecified; J44.9 Chronic obstructive pulmonary disease, unspecified; M19.90 Unspecified osteoarthritis, unspecified site; H26.9 Unspecified cataract; Z88.5 Allergy status to narcotic agent; Z91.041 Radiographic dye allergy status; Z79.51 Long term (current) use of inhaled steroids; Z79.899 Other long term (current) drug therapy; Z79.2 Long term (current) use of antibiotics; Z20.822 Contact with and (suspected) exposure to COVID-19 | CPT/HCPCS: A9270 ==

== ENCOUNTER 2020-03-16 00:42 | Day surgery (SDC) | payer MEDICARE, OTHER | END 2020-03-16 23:07 | disposition home or self-care (01) | LOC: WOUND 00:42 | DX: I96 Gangrene, not elsewhere classified (principal); L97.822 Non-pressure chronic ulcer of other part of left lower leg with fat layer exposed; I70.248 Atherosclerosis of native arteries of left leg with ulceration of other part of lower leg; L03.116 Cellulitis of left lower limb; I87.2 Venous insufficiency (chronic) (peripheral); I10 Essential (primary) hypertension; E03.9 Hypothyroidism, unspecified; J44.9 Chronic obstructive pulmonary disease, unspecified; Z88.5 Allergy status to narcotic agent; Z91.041 Radiographic dye allergy status; Z79.51 Long term (current) use of inhaled steroids; Z79.899 Other long term (current) drug therapy; M19.90 Unspecified osteoarthritis, unspecified site; H26.9 Unspecified cataract | CPT/HCPCS: A9270 ==

== ENCOUNTER 2020-03-23 00:15 | Day surgery (SDC) | payer MEDICARE, OTHER | END 2020-03-23 22:34 | disposition home or self-care (01) | LOC: WOUND 00:15 | DX: L97.822 Non-pressure chronic ulcer of other part of left lower leg with fat layer exposed (principal); I70.202 Unspecified atherosclerosis of native arteries of extremities, left leg; I87.2 Venous insufficiency (chronic) (peripheral); I10 Essential (primary) hypertension; E03.9 Hypothyroidism, unspecified; J44.9 Chronic obstructive pulmonary disease, unspecified | CPT/HCPCS: A9270 ==

== ENCOUNTER → 2020-03-25 | Outpatient (CLI) | payer MEDICARE, OTHER ==
[~2020-03-25] MED LIST changes: +HYDR1TAB94 PO
[2020-03-25 12:26] LABS: Appearance, Urine Clear (Clear); Bilirubin, Urine Neg (Neg); Blood, Urine Neg (Neg); Color, Urine Yellow (P-Yellow); Glucose Qualitative, Urine Neg (Neg); Ketones, Urine Neg (Neg); Leukocyte Esterase, Urine 1+ (Neg); Nitrite, Urine Neg (Neg); Protein, Urine Neg (Neg); Urobilinogen, Urine NORM (Normal)
[2020-03-25 12:44] LABS: Bacteria Not Seen /hpf; Red Blood Cells, Urine 0-2 /hpf (0-2); Squamous Epithelial Cells Not Seen /hpf (Few); White Blood Cells, Urine 0-2 /hpf (0-5)
== END | disposition home or self-care (01) ==
LOC: LAB SHORT 09:14 → LAB 09:14 → LAB FUT 03-23 14:25
PROVIDERS: Internal Medicine
DX: R32 Unspecified urinary incontinence (principal)
CPT/HCPCS: 81001; 87086

== ENCOUNTER 2020-03-30 00:15 | Day surgery (SDC) | payer MEDICARE, OTHER ==
[~2020-03-30 00:15] MED LIST changes: -HYDR1TAB94 PO
== END 2020-03-30 23:45 | disposition home or self-care (01) ==
LOC: WOUND 00:15
DX: L97.825 Non-pressure chronic ulcer of other part of left lower leg with muscle involvement without evidence of necrosis (principal); I70.202 Unspecified atherosclerosis of native arteries of extremities, left leg; I87.2 Venous insufficiency (chronic) (peripheral); I10 Essential (primary) hypertension; J44.9 Chronic obstructive pulmonary disease, unspecified; E03.9 Hypothyroidism, unspecified
CPT/HCPCS: A9270; Q4133

== ENCOUNTER 2020-04-05 10:55 | Day surgery (SDC) | payer MEDICARE, OTHER | END 2020-04-05 22:48 | disposition home or self-care (01) | LOC: WOUND 10:55 | DX: L97.822 Non-pressure chronic ulcer of other part of left lower leg with fat layer exposed (principal); I70.202 Unspecified atherosclerosis of native arteries of extremities, left leg; I73.9 Peripheral vascular disease, unspecified; I10 Essential (primary) hypertension; E03.9 Hypothyroidism, unspecified; J44.9 Chronic obstructive pulmonary disease, unspecified | CPT/HCPCS: A9270 ==

== ENCOUNTER 2020-04-13 01:33 | Day surgery (SDC) | payer MEDICARE, OTHER | END 2020-04-13 22:58 | disposition home or self-care (01) | LOC: WOUND 01:33 | DX: L97.822 Non-pressure chronic ulcer of other part of left lower leg with fat layer exposed (principal); I70.202 Unspecified atherosclerosis of native arteries of extremities, left leg; I87.2 Venous insufficiency (chronic) (peripheral); I10 Essential (primary) hypertension; J44.9 Chronic obstructive pulmonary disease, unspecified | CPT/HCPCS: A9270 ==

== ENCOUNTER → 2020-05-18 | Outpatient (CLI) | payer MEDICARE, OTHER ==
[~2020-05-18] MED LIST changes: +HYDR1TAB94 PO
== END | disposition home or self-care (01) ==
LOC: LAB 17:29 → LAB SHORT 17:29
DX: L08.9 Local infection of the skin and subcutaneous tissue, unspecified (principal); I87.2 Venous insufficiency (chronic) (peripheral); I83.028 Varicose veins of left lower extremity with ulcer other part of lower leg; D48.5 Neoplasm of uncertain behavior of skin; R60.0 Localized edema
CPT/HCPCS: 87070; 87077; 87186; 87205

== ENCOUNTER 2020-05-31 11:03 | Emergency (ER) | payer MEDICARE, OTHER ==
[~2020-05-31] VITALS: Ht 160 cm; Wt 74.8 kg
[~2020-05-31 11:03] MED LIST changes: -HYDR1TAB94 PO
[2020-05-31] MEDS ORDERED: HYDR1TAB94 PO (13:19)
== END 2020-05-31 13:45 | disposition home or self-care (01) ==
LOC: ER 11:03
DX: S01.112A Laceration without foreign body of left eyelid and periocular area, initial encounter (principal); S50.12XA Contusion of left forearm, initial encounter; J44.9 Chronic obstructive pulmonary disease, unspecified; I11.0 Hypertensive heart disease with heart failure; I50.9 Heart failure, unspecified; E03.9 Hypothyroidism, unspecified; Z91.040 Latex allergy status; Z88.5 Allergy status to narcotic agent; Z79.899 Other long term (current) drug therapy; W01.198A Fall on same level from slipping, tripping and stumbling with subsequent striking against other object, initial encounter
CPT/HCPCS: 12002; 70450; 72125; 73080; 99284-25

== ENCOUNTER → 2020-07-05 | Outpatient (CLI) | payer MEDICARE, OTHER ==
[~2020-07-05] MED LIST changes: +HYDR1TAB94 PO
== END ==
LOC: LAB SHORT 10:39 → LAB 10:39
DX: I87.2 Venous insufficiency (chronic) (peripheral) (principal); L08.9 Local infection of the skin and subcutaneous tissue, unspecified
CPT/HCPCS: 87070; 87205

== ENCOUNTER 2021-04-06 07:59 | Emergency (ER) | payer MEDICARE, OTHER ==
[~2021-04-06] VITALS: Ht 165.1 cm; Wt 68.0 kg
== END 2021-04-06 09:41 | disposition home or self-care (01) ==
LOC: ER 07:59
DX: U07.1 COVID-19 (principal); I11.0 Hypertensive heart disease with heart failure; I50.30 Unspecified diastolic (congestive) heart failure; Z87.891 Personal history of nicotine dependence; Z79.899 Other long term (current) drug therapy; Z91.041 Radiographic dye allergy status; Z88.5 Allergy status to narcotic agent
CPT/HCPCS: 71046; 99283-25

== ENCOUNTER → 2021-09-20 | Outpatient (CLI) | payer MEDICARE, OTHER ==
[2021-09-20 18:43] LABS: BASOPHILS ABSOLUTE AUTO 0.07 K/mm3 (0.00-0.23); BASOPHILS PERCENT AUTO 1 % (0-2); EOSINOPHILS ABSOLUTE AUTO 0.51 K/mm3 (0.00-0.68); EOSINOPHILS PERCENT AUTO 5 % (0-6); Hematocrit 41.1 % (33.0-51.0); Hemoglobin 13.4 g/dL (11.5-16.0); IMMATURE GRAN ABSOLUTE AUTO 0.02 K/mm3 (0.00-0.10); IMMATURE GRAN PERCENT AUTO 0 % (0-1); LYMPHOCYTES ABSOLUTE AUTO 1.47 K/mm3 (0.84-5.20); LYMPHOCYTES PERCENT AUTO 15 % (21-46); MONOCYTES ABSOLUTE AUTO 0.89 K/mm3 (0.16-1.47); MONOCYTES PERCENT AUTO 9 % (4-13); Mean Corpuscular HGB 30.3 pg (26.0-34.0); Mean Corpuscular HGB Conc 32.6 g/dL (31.5-36.5); Mean Corpuscular Volume 93 fL (80-100); Mean Platelet Volume 10.8 fL (9.1-12.4); NEUTROPHILS PERCENT AUTO 69 % (41-73); Platelet Count 289 K/mm3 (150-400); RDW Standard Deviation 44.3 fL (35.1-46.3); Red Blood Cell Count 4.42 M/mm3 (3.80-5.20); White Blood Cell Count 9.56 K/mm3 (4.00-11.30)
[2021-09-20 19:22] LABS: Alanine Aminotransfer (ALT/SGP 17 U/L (12-78); Albumin, Blood 4.1 g/dL (3.4-5.0); Albumin/Globulin Ratio 1.4 (0.8-1.8); Alk Phos 105 U/L (50-136); Anion Gap 8 mmol/L (6-16); Aspartate Aminotrans (AST/SGOT 13 U/L (12-37); Bilirubin, Total 0.5 mg/dL (0.1-1.0); Blood Urea Nitrogen 26 mg/dL (8-24); Bun/Creatinine Ratio 28.1 (12.0-20.0); CHOL/HDL RATIO 2.6; CO2, Blood 23 mmol/L (21-32); Calcium, Blood 9.3 mg/dL (8.5-10.1); Chloride, Blood 107 mmol/L (98-108); Cholesterol 180 mg/dL (50-200); Creatinine, Blood 0.93 mg/dL (0.40-1.00); Globulin, Blood 2.9 g/dL (2.2-4.0); Glomerular Filtration Rate 59 (60-); Glucose, Blood 109 mg/dL (70-99); HDL Cholesterol 68 mg/dL (>39); LDL/HDL RATIO 1.3; Low Density Lipoprotein Chol 89 mg/dL (0-110); Potassium, Blood 4.5 mmol/L (3.5-5.5); Sodium, Blood 138 mmol/L (136-145); Thyroid Stimulating Hormone 0.997 uIU/mL (0.360-4.800); Triglycerides 117 mg/dL (30-160); Very Low Density Lipoprot Chol 23 mg/dL (6-32)
== END | disposition home or self-care (01) ==
LOC: LAB 12:22 → LAB SHORT 12:22
PROVIDERS: Physician Assistant
DX: I10 Essential (primary) hypertension (principal); E03.9 Hypothyroidism, unspecified; Z79.899 Other long term (current) drug therapy
CPT/HCPCS: 80053; 80061; 82306; 83036; 84443; 85025

== ENCOUNTER 2021-11-23 08:21 | Inpatient (IN) | payer MEDICARE, OTHER ==
[~2021-11-23] VITALS: Ht 165.1 cm; Wt 65.6 kg
[~2021-11-23 08:21] MED LIST changes: +CEFD300 PO
[2021-11-23 09:15] LABS: Source, Urine Straight Cath
[2021-11-23 09:17] LABS: BASOPHILS PERCENT AUTO 1 % (0-2); EOSINOPHILS PERCENT AUTO 10 % (0-6); Hematocrit 39.1 % (33.0-51.0); IMMATURE GRAN ABSOLUTE AUTO 0.25 K/mm3 (0.00-0.10); IMMATURE GRAN PERCENT AUTO 1 % (0-1); LYMPHOCYTES ABSOLUTE AUTO 1.08 K/mm3 (0.84-5.20); LYMPHOCYTES PERCENT AUTO 5 % (21-46); MONOCYTES ABSOLUTE AUTO 1.97 K/mm3 (0.16-1.47); MONOCYTES PERCENT AUTO 10 % (4-13); Mean Corpuscular HGB 29.7 pg (26.0-34.0); Mean Corpuscular HGB Conc 33.2 g/dL (31.5-36.5); Mean Platelet Volume 10.8 fL (9.1-12.4); NEUTROPHILS ABSOLUTE AUTO 15.17 K/mm3 (1.96-9.15); NEUTROPHILS PERCENT AUTO 74 % (41-73); Platelet Count 261 K/mm3 (150-400); RDW Coefficient Variation 13.3 % (11.7-14.2); RDW Standard Deviation 44.3 fL (35.1-46.3); Red Blood Cell Count 4.37 M/mm3 (3.80-5.20); White Blood Cell Count 20.57 K/mm3 (4.00-11.30)
[2021-11-23 09:20] LABS: Mean Corpuscular Volume 90 fL (80-100)
[2021-11-23 09:23] LABS: Appearance, Urine Clear (Clear); Bilirubin, Urine Neg (Neg); Blood, Urine 2+ (Neg); Color, Urine Yellow (P-Yellow); Glucose Qualitative, Urine Neg (Neg); Ketones, Urine Neg (Neg); Leukocyte Esterase, Urine 1+ (Neg); Nitrite, Urine Neg (Neg); Protein, Urine 2+ (Neg); Urobilinogen, Urine NORM (Normal)
[2021-11-23 09:36] LABS: Albumin/Globulin Ratio 0.7 (0.8-1.8); Bilirubin, Total 0.5 mg/dL (0.1-1.0); Bun/Creatinine Ratio 29.8 (12.0-20.0); Calcium, Blood 8.9 mg/dL (8.5-10.1); Creatinine, Blood 1.14 mg/dL (0.40-1.00); Globulin, Blood 4.1 g/dL (2.2-4.0); Total Protein, Blood 7.1 g/dL (6.4-8.2)
[2021-11-23 09:41] LABS: Bacteria Few /hpf; Red Blood Cells, Urine 0-2 /hpf (0-2); Squamous Epithelial Cells Few /hpf (Few)
[2021-11-23] MEDS ORDERED: ELLIPTA INH (12:35)
[2021-11-23] MEDS ORDERED: FLUT1DIS5 INH (12:35)
[2021-11-23] MEDS ORDERED: CEFDINIR300 M4 PO (15:03)
--- NOTE | 2021-11-23 15:48 | NUR ---
ER ADMIT- PT ARRIVED TO ROOM 335 VIA KELY FROM ED AT 1435. PT A 3 PERSON SLIDE INTO BED. PT PLEASANTLY CONFUSED, ORIENT TO PERSON AND PLACE. PT REPORTS PAIN TO SHOULDERS/LEGS WITH MOVEMENT AND CHRONIC RIGHT FOOT PAIN. LS CLEAR, ON ROOM AIR, BUT DOES REPORT SHE USES OXYGEN AT HOME AT BEDTIME BUT UNSURE OF RATE. HRR. PT WITH ULCER TO SCARAL, DRY FLAKY SKIN TO BLE, BRUISING TO LFA, ABRASION TO LEFT FORHEAD FROM FALL 2 DAYS AGO- PHOTOS TAKEN. PT WITH GENERALIZED WEAKNESS T/O. PT LIVES ALONE AT HOME BUT HAS A FRIEND THAT CHECKS IN WITH HER, FRIEND AT BEDSIDE UPON ARRIVAL TO FLOOR. PT ORIENTED TO ROOM AND CALL SYSTEM, CALL LIGHT IN REACH AND BED ALARM IN PLACE.
--- NOTE | 2021-11-23 17:26 | NUR ---
Spiritual Care Request Pt. is in bed and immeidately welcomes my visit. While notes identify the Pt. as AMS, in my visit the Pt. is pleasant. Pt. is unsettled by the multiple little things medically she is contending with. Pt. is chatty. Rapport is established, and Pt. displays evidence of real and deep linda. Prayed with Pt. as she grabbed my hand. Pt. verbalized gratitude for the spiritual care visit. Will remain available to [facility] Pt.
--- NOTE | 2021-11-24 04:08 | NUR ---
SHIFT SUMMARY; PATIENT IS AO X 3 DURING NOC SHIFT. SHE SLEEPS INTERMITTENTLY. PATIENT COMPLAINS OF LEFT LEG PAIN AND HAS DIFFICULTY ROLLING TO SIDE TO BE PLACED ON BED LAU. PATIENT EXPRESSES THAT SHE WANTS TO GO HOME AND FEELS HER FRIEND CAN TAKE CARE OF HER AT HER HOUSE. PATIENT ALSO SAYS SHE HAS THE FINANCES TO HIRE NURSING CARE TO COME ASSIST HER AT HOME. HER BLOOD PRESSURE IS ELEVATED DURING THE NIGHT AT 157 SYSTOLIC. PATIENT DENIES ANY CP SHE DOES OCMPLAIN OF HER LEFT LEG HURTING. SHE IS CURRENTLY RECEIVING NS AT 125ML/HR. PATIENT IS ABLE TO TAKE HER PO MEDICATIONS WHOLE WITH WATER. WILL CONTINUE TO MONITOR THIS PATIENT CLOSELY FOR ANY WANTS OR NEEDS THAT COME UP PRIOR TO SHIFT CHANGE AND REPORT TO DAY SHIFT RN.
[2021-11-24 05:07] LABS: Hematocrit 31.6 % (33.0-51.0); Hemoglobin 10.7 g/dL (11.5-16.0); Mean Corpuscular HGB 29.6 pg (26.0-34.0); Mean Corpuscular HGB Conc 33.9 g/dL (31.5-36.5); Mean Corpuscular Volume 87 fL (80-100); Mean Platelet Volume 10.4 fL (9.1-12.4); Platelet Count 228 K/mm3 (150-400); RDW Coefficient Variation 13.2 % (11.7-14.2); RDW Standard Deviation 42.6 fL (35.1-46.3); Red Blood Cell Count 3.62 M/mm3 (3.80-5.20); White Blood Cell Count 16.87 K/mm3 (4.00-11.30)
[2021-11-24 09:11] LABS: Albumin, Blood 2.5 g/dL (3.4-5.0); Anion Gap 7 mmol/L (6-16); Blood Urea Nitrogen 23 mg/dL (8-24); Bun/Creatinine Ratio 28.5 (12.0-20.0); CO2, Blood 22 mmol/L (21-32); Calcium, Blood 8.5 mg/dL (8.5-10.1); Chloride, Blood 108 mmol/L (98-108); Creatinine, Blood 0.81 mg/dL (0.40-1.00); Glomerular Filtration Rate 70 (60-); Glucose, Blood 122 mg/dL (70-99); Phosphorus, Blood 2.3 mg/dL (2.5-4.9); Potassium, Blood 3.8 mmol/L (3.5-5.5); Sodium, Blood 137 mmol/L (136-145)
--- NOTE | 2021-11-24 15:39 | NUR ---
PATIENTS CONFUSION HAS INCREASED THROUGH OUT SHIFT, DR TRUJILLO AWARE, PATIENT WAS HAVING AUDIBLE AND VISUAL HALLUCINATIONS. POSITIVE FOR A RIGHT DVT, MINIMAL MOVEMENT IN THE RIGHT KNEE AND SCREAMING IN PAIN WHEN MOVING, RIGHT KNEE IS SWOLLEN MORE THAN THE LEFT KNEE, CALL LIGHT WITH IN REACH
--- NOTE | 2021-11-24 17:03 | NUR ---
REPORTEDTO DR TRUJILLO, PATIENT CONITNUED TO INCREASE WITH AGGRESSIVE BEHAVIOR, PATIENT MOVED TO [address] [place] [address] REPORTED A SMALL DVT THAT IS NOT IN THE POPLETEAL IN THE RIGHT LOWER LEG, REPORTED TO DR TRUJILLO, GAVE REPORT TO CATALINA CACERES RN
--- NOTE | 2021-11-24 17:17 | NUR ---
TRANSFER FROM ROOM 335 TO 346. THIS RN HAS REVIEWED AND AGREES WITH NOTES AND ASSESSMENTS FROM PREVIOUS NURSE.
--- NOTE | 2021-11-24 21:44 | NUR ---
Jb mental health call Jb called wanting to speak with the mental health doctor associated with this pt. Dr. Mckeon is unavailable until Saturday morning. Tried to call back at the phone number Jb left: [phone] but no one answreed and there was no way to leave a message.
--- NOTE | 2021-11-25 04:49 | NUR ---
SHIFT SUMMARY PT IN KAREN VEST AND 4 SIDERAILS RESTRAINTS UPON ARRIVAL. PT FREQUENTLY REQUESTED SCISSORS TO CUT HER RESTRAINTS, AND FREQUENTLY ANNOUNCED HER INTENTION TO GET UP. SHE BELIEVED SHE WAS IN HER OWN ROOM IN HER HOUSE. PT WAS EASILY AGITATED AND REFUSED MOST CARE. SHE DID REJECTD HER IV ABX, BUT WHEN I SWITCHED IT TO PO ABX SHE HESITANTLY TOOK IT IT. RESTRAINTS AT 1800 TODAY. PT'S AGITATION LOWERED T/O THE NIGHT. NO ACUTE CHANGES, VSS. D/C HOME OR PLACEMENT DEPENDING ON RESOLUTION OF CONFUSION AND WEAKNESS.
[2021-11-25 08:51] LABS: BASOPHILS ABSOLUTE AUTO 0.08 K/mm3 (0.00-0.23); BASOPHILS PERCENT AUTO 0 % (0-2); EOSINOPHILS ABSOLUTE AUTO 1.88 K/mm3 (0.00-0.68); EOSINOPHILS PERCENT AUTO 10 % (0-6); Hematocrit 34.1 % (33.0-51.0); Hemoglobin 11.6 g/dL (11.5-16.0); IMMATURE GRAN ABSOLUTE AUTO 0.12 K/mm3 (0.00-0.10); IMMATURE GRAN PERCENT AUTO 1 % (0-1); LYMPHOCYTES ABSOLUTE AUTO 1.72 K/mm3 (0.84-5.20); LYMPHOCYTES PERCENT AUTO 9 % (21-46); MONOCYTES ABSOLUTE AUTO 2.03 K/mm3 (0.16-1.47); MONOCYTES PERCENT AUTO 10 % (4-13); Mean Corpuscular HGB 29.4 pg (26.0-34.0); Mean Corpuscular Volume 87 fL (80-100); Mean Platelet Volume 10.4 fL (9.1-12.4); NEUTROPHILS ABSOLUTE AUTO 13.79 K/mm3 (1.96-9.15); NEUTROPHILS PERCENT AUTO 70 % (41-73); Platelet Count 286 K/mm3 (150-400); RDW Coefficient Variation 13.3 % (11.7-14.2); RDW Standard Deviation 42.3 fL (35.1-46.3); Red Blood Cell Count 3.94 M/mm3 (3.80-5.20); White Blood Cell Count 19.62 K/mm3 (4.00-11.30)
[2021-11-25 09:10] LABS: Albumin, Blood 2.6 g/dL (3.4-5.0); Anion Gap 8 mmol/L (6-16); Blood Urea Nitrogen 17 mg/dL (8-24); CO2, Blood 21 mmol/L (21-32); Calcium, Blood 8.8 mg/dL (8.5-10.1); Chloride, Blood 109 mmol/L (98-108); Creatinine, Blood 0.65 mg/dL (0.40-1.00); Glomerular Filtration Rate 85 (60-); Glucose, Blood 106 mg/dL (70-99); Phosphorus, Blood 2.8 mg/dL (2.5-4.9); Potassium, Blood 3.8 mmol/L (3.5-5.5); Sodium, Blood 138 mmol/L (136-145)
--- NOTE | 2021-11-25 16:32 | NUR ---
SHIFT SUMMARY PT TAKEN OUT OF RESTRAINTS THIS AM. PT FORGETFUL BUT PLEASANT & COOPERATIVE T/O SHIFT. USES CALL LIGHT APPROPRIATELY. BED ALARM IN PLACE. MD NOTIFIED THAT IV WENT BAD. NO IV ACCESS ORDER OBTAINED. ALSO NOTIFED THAT IT HAD BEEN SEVERAL DAYS WITHOUT A BM. ORDERED PLACED PER . PT WORKING WITH PHYSICAL THERAPY AND GOT UP TO CHAIR TODAY WITH 2P ASSIST. NO OTHER ACUTE CHANGES IN ASSESSMENT AT THIS TIME.
--- NOTE | 2021-11-26 03:58 | NUR ---
SUMMARY: PATIENT VERY PLEASANT THROUGH THE NIGHT. SLIGHTLY DISORIENTED AT BEGINING OF SHIFT STATING SHE NEEDED TO GO HOME BECAUSE HER FRIEND KETAN WOULD BE CHECKING ON HER AT HER HOUSE AND SHE WOULDN'T BE THERE. CALLED PATIENT FRIEND IN ROOM BEFORE BED TO LET HER KNOW SHE WAS IN THE HOSPITAL TO HELP EASE PATIENT ANXIETY. PATIENT EASILY REORIENTED AFTER CALL AND WAS COOPERATIVE THE REST OF SHIFT. PATIENT TOOK MEDS WHOLE AND WAS TURNED IN BED Q2 HOUR TO PREVENT SKIN BREAKDOWN. PATIENT DID NOT ATTEMPT TO GET UP WITHOUT ASSISTANCE.
--- NOTE | 2021-11-26 17:26 | NUR ---
SHIFT SUMMARY PT REQUIRING 2P FOR TRANSFERS AT THIS TIME. PT TALKS ABOUT LEAVING TO GO HOME TOMORROW, HOPEFULLY. PT CURRENTLY RESTING IN BED. CALL LIGHT IN REACH. SEE EMAR FOR PAIN CUPOLA MELTING SUPERVISOR. PLAN FOR PHYSICAL THERAPY TO WORK MORE WITH PT TOMORROW TO DETERMINE FURTHER PLAN OF CARE PER DR. SCOTT. NO OTHER ACUTE CHANGES IN ASSESSMENT AT THIS TIME. VS REVIEWED.
--- NOTE | 2021-11-27 04:03 | NUR ---
SUMMARY: PATIENT SLIGHTLY CONFUSED ABOUT WHERE SHE IS. QUICKLY REORIENTED TO PLACE. NO ACUTE EVENTS OVER NIGHT. UP TO COMMODE 2 PERSON MAX ASSIST. PAUL VOICING CONCERNS THAT SHE IS READY TO LEAVE BUT IS STILL VERY WEAK. VSS. TURNED PATIENT Q2 HOURS THROUGHOUT THE NIGHT.
--- NOTE | 2021-11-27 18:27 | NUR ---
PATIENT HAS BEEN ALERT AND ORIENTATED TO SELF. ABLE TO MAKE NEEDS KNOWN. SHE SITS UP IN THE CHIAR FOR MEALS WHEN DESIRED. PATIENT HAS NO PAIN. SHE DENIES SOB, LS HAVE SOME SCATTERED CRACKLES IN BASES. URINE STILL DARK AND FOUL SMELLING BUT SHE HAS NOT COMPLAINED OF PAIN OR BURNING DURING URINATION. [facility]
--- NOTE | 2021-11-28 03:53 | NUR ---
SUMMARY: PATIENT SLIGHTLY AGITATED AT SHIFT CHANGE REQUESTING THAT WE LET HER CALL A CAB TO GO HOME. REASSURED PATIENT THAT SHE WOULD BE STAYING IN THE HOSPITAL FOR THE NIGHT. CALLED PATIENT FRIEND KETAN AND SHE ALSO WAS HELPFUL AND TOLD THE PATIENT SHE SHOULD STAY IN THE HOSPITAL. PATIENT COOPERATIVE AND PLEASANT THE REMAINDER OF THE SHIFT. PATIENT VOIDED TWICE. URINE WITH SLIGHT ODOR. NO ACUTE MEDICAL EVENTS OVERNIGHT. VSS. TURNED PATIENT Q2 HOURS.
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
--- NOTE | 2021-11-28 19:05 | NUR ---
PATIENT WAS LABILE THIS SHIFT. SHE WAS DETERMINED THAT SHE WAS LEAVING AND WHEN SHE FOUND OUT THAT SHE WASN'T, SHE BECAME VULGAR WITH LANGUAGE. THERE IS A CONSULT FOR DR. RIVERA IN THE SYSTEM. DR. Macias STATED THAT HE WOULD SEE THIS PATIENT TOMORROW.
--- NOTE | 2021-11-29 04:17 | NUR ---
Summary: Patient was oriented for majority of shift overnight. Assisted patient to commode with two person assist. Changed foam dressing on patient sacrum. No acute events over night. Patient urine still with an odor. VSS. Patient did slightly better ambulating to commode than last night. Patient still very weak and needs a lot of assistance ambulating. Turned patient in bed [id number].
[2021-11-29 07:58] LABS: Hemoglobin 10.8 g/dL (11.5-16.0); Mean Corpuscular HGB Conc 33.8 g/dL (31.5-36.5); Mean Corpuscular Volume 86 fL (80-100); Mean Platelet Volume 10.4 fL (9.1-12.4); Platelet Count 296 K/mm3 (150-400); RDW Coefficient Variation 13.5 % (11.7-14.2); RDW Standard Deviation 42.4 fL (35.1-46.3); Red Blood Cell Count 3.72 M/mm3 (3.80-5.20); White Blood Cell Count 17.35 K/mm3 (4.00-11.30)
[2021-11-29 08:17] LABS: Bun/Creatinine Ratio 31.4 (12.0-20.0); Calcium, Blood 8.7 mg/dL (8.5-10.1); Creatinine, Blood 0.86 mg/dL (0.40-1.00)
--- NOTE | 2021-11-29 18:12 | NUR ---
SHIFT SUMMARY PT IS A&OX 2-3 AND COOPERATIVE OF CARE. PT HAD NO C/O PAIN TODAY. PT WORKED WITH OT AND PT TODAY. PT WAS ABLE TO GET UP TO CHAIR FOR MEALS. PT HAD HOLD PLACED TODAY AND PT VERBALIZED DISAGREEMENT WITH DECISION AND APPEARED UPSET BY THE NEWS. PT HAD VISITORS DURING AFTERNOON. BED IN LOWEST POSITION AND CALL LIGHIT IN REACH.
--- NOTE | 2021-11-30 04:45 | NUR ---
SHIFT SUMMARY PATIENT IS ALERT AND ORIENTED 2-3X. PATIENT HAS BEEN COOPERATIVE WITH CARE THIS SHIFT. PATIENT HAS HAD NO ACUTE EVENTS THIS SHIFT. PATIENT HAS HAD NO COMPLAINTS OF PAIN, NAUSEA, VOMITTING OR SOB THIS SHIFT. PATIENT IS ON A 2MD HOLD. PATIENT HAS BEEN SLEEPING MOST OF SHIFT. BED IN LOCKED AND LOWEST POSITION. CALL LIGHT IN PLACE. WILL MONITOR UNTIL SHIFT CHANGE.
--- NOTE | 2021-11-30 18:44 | NUR ---
SHISFT SUMMARY BOTH NEIGHBOR AND FINANCIAL HELPER CAME IN TODAY AND THE HOLD WAS EXPLAINED. PT IS VERY UNHAPPY WITH THE DECISION. STILL CONFUSED, AX0 2. PT HAS A POOR APPETITE AND IS SIPPING ONLY A LITTLE BIT OF WATER. BED IS IN LOWEST POSITION AND CALLL LIGHT IN REACH.
--- NOTE | 2021-12-01 03:59 | NUR ---
REMOTE MONITORING IN PLACE. ORDER FOR NO IV ACCESS. STAGE 2 PRESSURE ULCER ON SACRUM. PT IS a&O X 2-3, REQUIRING FREQUENT REORIENTATION. SHE IS PLEASANT WITH STAFF AND COOPERATIVE WITH CARE. SLEPT MOST OF THE SHIFT. NO ACUTE CHANGES. AWAITING PLACEMENT. BED IN LOWEST POSITION. RN WILL CONTINUE TO MONITOR UNTIL SHIFT CHANGE.
--- NOTE | 2021-12-01 05:53 | NUR ---
MIGUEL WAS HALLUCINATING ABOUT A MAN IN HIS "UPPER 80'S" THAT "CAME TO THE HOUSE, BUT HE DIDN'T EXPECT YOU PEOPLE." SHE ASKED THE NURSE, "WOULD YOU TRY TO MAKE HIM COMFORTABLE FOR ME?" PT WAS EASILY REASSURED AND WENT BACK TO SLEEP.
--- NOTE | 2021-12-01 19:47 | NUR ---
END OF SHIFT SUMMARY: PATIENT DENIED PAIN THROUGHOUT THE SHIFT. PATIENT UP TO THE CHAIR AND BATHROOM. PATIENT WORKED WITH PT. PATIENT IS A MAX ASSIST WITH TWO PEOPLE. PATIENT CALM AND PLEASANT WITH STAFF. PATIENT ALERT AND ORIENTED X 2. PATIENT FOLLOWING DIRECTIONS AND ANSWERING QUESTIONS APPROPRIATELY. NO HALLUCINATIONS WITNESSED OR REPORTED. PATIENT REPORTED SOME FEELINGS OF VERTIGO THIS AM THAT LASTED ABOUT 1 HOUR. PATIENT REPORTED THAT THIS OCCURS AT HOME. PATIENT EXPERIENCED THE VERTIGO WHETHER SITTING, STANDING OR LYING DOWN. VITALS STABLE AND RESPONDED APPROPRIATELY TO POSTURAL CHANGES (SEE VITALS).
--- NOTE | 2021-12-02 04:31 | NUR ---
SHIFT SUMMARY 86 YR F ADMITTED ON 11/23/21 FOR UTI/SEPSIS. FULL CODE. NO ACUTE CHANGES THIS SHIFT. PT WAS CONFUSED AT BEGINNING OF SHIFT AND ASKED IF SHE WAS AT "[facility]". IT WAS EXPLAINED TO HER THAT SHE IS IN THE HOSPITAL AND SHE ACTED SURPRISED. SHE HAS SLEPT FOR NEARLY ALL OF THIS SHIFT AND HAS NOT BEEN TRYING TO GET OUT OF BED W/O ASSISTANCE.
--- NOTE | 2021-12-02 18:26 | NUR ---
END OF SHIFT SUMMARY: PATIENT EXPERIENCED MORE CONFUSION TODAY. PATIENT HAD PERIODS OF BEING CALM AND COOPERATIVE WITH STAFF AND PERIODS OF YELLING AT THEM FOR NOT TAKING HER "DOWN TO THE FIRST FLOOR LOBBY AND LEAVING HER THERE". PATIENT REPORTED SOME ABDOMINAL PAIN THAT RESOLVED ONCE SHE AGREED TO EAT SOMETHING. PATIENT UP TO THE CHAIR AND RECLINER. PATIENT UP WITH 1-2 ASSIST WITH FWW AND GAIT BELT. PATIENT HAS A VERY MINIMAL APPETITE.
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
--- NOTE | 2021-12-03 17:08 | NUR ---
SHIFT SUMMARY; PATIENT VERY CONFRONTATIONAL DURING DAY SHIFT. SHE REFUSED AM MEAL. DID TAKE AM MEDS BUT REFUSED 1800 [place] SAYS SHE DOES NOT NEED IT. VITAL SIGNS ARE STABLE. B/P IS SLIGHTLY LOW AT 99 SYSTOLIC. SHE DENIES ANY CP OR PRESSURE. PATIENT REMAINS IN BED DURING DAY SHIFT. DOES EAT LUNCH AND DINNER TODAY. FRIEND DID VISIT HER TODAY AND PATIENT WAS CALM AND DID HAVE WHAT APPEARS TO BE NORMAL INTERACTIONS AND ABLE TO CARRY ON CONVERSATION WITH HER FRIEND.
--- NOTE | 2021-12-04 05:37 | NUR ---
SHIFT SUMMARY PT AOX3, COOPERATIVE WITH CARE AND PLEASANT TONIGHT. SLIGHTLY HYPOTENSIVE TONIGHT, 92/50 AT 19:40, IMPROVED TO 116/49 AT 04:20. PT SLEPT COMFORTABLY THROUGH THE NIGHT, NO C/O PAIN OR NAUSEA. NO ATTEMPTS TO GET OUT OF BED W/O ASSISTANCE, NO VERBAL HARASSMENT OF STAFF.
--- NOTE | 2021-12-04 18:01 | NUR ---
PT FLUCTUATES BETWEEN A&O X 2-3 PARANOID AND ANXIOUS AT TIMES. REDIRECTS AND OBEYS COMMANDS. PT LUNGS CTA ALL LUNG TURNER. DENIES CP OR SOB. ALL DRESSINGS ON WOUNDS ARE CLEAN, INTACT, AND DRY. PT IS CURRENTLY ON A 2MD HOLD FOR GAURDIANSHIP ISSUES AND SAFETY ISSUES FOR D/C RELATED TO WEAKNESS AND VARYING ORIENTATION STATUS. P/T WAS ABLE TO STAND AND PIVOT PT 1P ASSIST WITH A WALKER TO BEDSIDE CHAIR. BED IN THE LOWEST POSITION, CALL LIGHT WITHIN REACH, CALLS APPRO
--- NOTE | 2021-12-04 18:08 | NUR ---
REVIEWED AND DISCUSSED STUDENT NOTES AND ASSESSMENT. I AGREE.
--- NOTE | 2021-12-04 18:39 | NUR ---
PT DEMANDED TO GO HOME. PUT GAIT BELT ON PT. AND SHE STOOD. WALKED WITH FWW TO DOOR OF ROOM. AT THIS POINT, SHE STATES EXHAUSTED. WANTED TO GO BACK TO BED. PT AMBULATED WITH ASST TO BED. AGREED TO LIE DOWN. PT BACK TO BED. BED IN LOW POSITION, CALL LITE IN REACH. BED ALARM ON FOR SAFETY
[2021-12-05 05:47] LABS: Hematocrit 33.6 % (33.0-51.0); Hemoglobin 11.3 g/dL (11.5-16.0); Mean Corpuscular HGB 28.8 pg (26.0-34.0); Mean Corpuscular HGB Conc 33.6 g/dL (31.5-36.5); Mean Corpuscular Volume 86 fL (80-100); Mean Platelet Volume 10.9 fL (9.1-12.4); Platelet Count 297 K/mm3 (150-400); RDW Coefficient Variation 13.5 % (11.7-14.2); RDW Standard Deviation 42.3 fL (35.1-46.3); Red Blood Cell Count 3.92 M/mm3 (3.80-5.20); White Blood Cell Count 20.53 K/mm3 (4.00-11.30)
[2021-12-05 06:20] LABS: Albumin, Blood 2.6 g/dL (3.4-5.0); Anion Gap 8 mmol/L (6-16); Blood Urea Nitrogen 26 mg/dL (8-24); Bun/Creatinine Ratio 26.4 (12.0-20.0); CO2, Blood 23 mmol/L (21-32); Chloride, Blood 108 mmol/L (98-108); Creatinine, Blood 0.98 mg/dL (0.40-1.00); Glomerular Filtration Rate 56 (60-); Glucose, Blood 95 mg/dL (70-99); Phosphorus, Blood 3.7 mg/dL (2.5-4.9); Potassium, Blood 4.3 mmol/L (3.5-5.5); Sodium, Blood 139 mmol/L (136-145)
--- NOTE | 2021-12-05 07:26 | NUR ---
SHIFT SUMMARY: PT A/O X 2-3, ONE ASSIST WITH WALKER/GB. PT WAS AGITATED AT START OF SHIFT BUT ONCE SHE WAS RE-ORIENTED TO SITUATION, SHE BECAME PLEASANT AND COOPERATIVE WITH CARE. PT SLEPT THROUGH THE NIGHT. SHE EASILY AWOKE FOR MEDICATIONS AND LABS AND WAS PLEASANT WITH INTERACTION. WBC ELEVATED TODAY. NO OTHER CONCERNS.
--- NOTE | 2021-12-05 14:03 | NUR ---
Spiritual Care Visit. Pt. is awake and welcomes me in the room. Pt. is pleasant but mildly unsettled about her medical prognosis. Pt. displays evidence of engagement and awareness of her life and community relaitonships. Re-establish rapport. Facilitated a life review, and Pt. was enagaged for quite some time. Pt. displayed some evidence of lonliness, and it became evident when she verbalized what the visit meant to her. Prayed with Pt. Pt. verbalized gratitude for the spiritual care visit. Pt. asked for this manual machinist's business card. Left her my name and office #.
--- NOTE | 2021-12-05 17:11 | NUR ---
Shift Summary A/O only to self. Denies pain. Refusing meds this afternoon. Attempted to give bowel meds, but patient refused. Explained to patient last bm was 12/01, patient still refused and responded with "Why do I need to take any medications when I'm going to soon anyway? That's a good question huh?" Also refusing to eat meals or drink fluids. Assisted patient in calling friend (Rona). Overheard patient telling Rona to "come and get me right now. They have me locked in here and won't let me out." Worked with therapy, sat in chair for breakfast and lunch, ate minimally.
[2021-12-06 05:56] LABS: BASOPHILS PERCENT AUTO 1 % (0-2); EOSINOPHILS ABSOLUTE AUTO 1.96 K/mm3 (0.00-0.68); EOSINOPHILS PERCENT AUTO 9 % (0-6); Hemoglobin 11.4 g/dL (11.5-16.0); IMMATURE GRAN ABSOLUTE AUTO 0.22 K/mm3 (0.00-0.10); IMMATURE GRAN PERCENT AUTO 1 % (0-1); LYMPHOCYTES ABSOLUTE AUTO 1.69 K/mm3 (0.84-5.20); LYMPHOCYTES PERCENT AUTO 8 % (21-46); MONOCYTES ABSOLUTE AUTO 1.79 K/mm3 (0.16-1.47); MONOCYTES PERCENT AUTO 8 % (4-13); Mean Corpuscular HGB 28.7 pg (26.0-34.0); Mean Corpuscular HGB Conc 33.5 g/dL (31.5-36.5); Mean Corpuscular Volume 86 fL (80-100); NEUTROPHILS ABSOLUTE AUTO 16.06 K/mm3 (1.96-9.15); NEUTROPHILS PERCENT AUTO 74 % (41-73); Platelet Count 290 K/mm3 (150-400); RDW Coefficient Variation 13.6 % (11.7-14.2); RDW Standard Deviation 42.8 fL (35.1-46.3); Red Blood Cell Count 3.97 M/mm3 (3.80-5.20); White Blood Cell Count 21.82 K/mm3 (4.00-11.30)
[2021-12-06 06:20] LABS: Albumin, Blood 2.5 g/dL (3.4-5.0); Anion Gap 7 mmol/L (6-16); Blood Urea Nitrogen 24 mg/dL (8-24); Bun/Creatinine Ratio 24.5 (12.0-20.0); CO2, Blood 25 mmol/L (21-32); Calcium, Blood 8.5 mg/dL (8.5-10.1); Chloride, Blood 106 mmol/L (98-108); Creatinine, Blood 0.98 mg/dL (0.40-1.00); Glomerular Filtration Rate 56 (60-); Glucose, Blood 106 mg/dL (70-99); Phosphorus, Blood 3.5 mg/dL (2.5-4.9); Potassium, Blood 4.5 mmol/L (3.5-5.5); Sodium, Blood 138 mmol/L (136-145)
[2021-12-06 11:47] LABS: Source, Urine Straight Cath
[2021-12-06 11:49] LABS: Appearance, Urine Clear (Clear); Bilirubin, Urine Neg (Neg); Blood, Urine 1+ (Neg); Color, Urine Yellow (P-Yellow); Glucose Qualitative, Urine Neg (Neg); Ketones, Urine Neg (Neg); Leukocyte Esterase, Urine 3+ (Neg); Nitrite, Urine Neg (Neg); Protein, Urine Neg (Neg); Specific Gravity, Urine 1.015 (1.003-1.022); Urobilinogen, Urine NORM (Normal)
[2021-12-06 12:09] LABS: Bacteria Mod /hpf; Transitional Epithelial Cells Few /hpf (0-Rare)
[2021-12-06 12:11] LABS: Red Blood Cells, Urine 0-2 /hpf (0-2); Squamous Epithelial Cells Few /hpf (Few)
--- NOTE | 2021-12-06 18:17 | NUR ---
Shift Summary A/O to self and friend. Knows she is in the hospital and Alex is president, but nothing else. Rona (friend) visited which seems to bring patient comfort. Cooperative with meds today. Refusing meals citing lack of appetite. Up in recliner for meals and back to bed afterward.
--- NOTE | 2021-12-07 03:34 | NUR ---
SHIFT SUMMARY NO COMPLAINTS FROM THIS PT AT THIS TIME. PT HAS BEEN MOSTLY PLEASANT WITH THIS RN, BUT HAS BEEN IRRITABLE WITH OTHER STAFF MEMBERS. PT IS A 2 PERSON ASSIST TO THE BEDSIDE COMMODE. PT HAS CALL LIGHT WITHIN HER REACH. PT MEDICATED PER EMAR FOR HIP PAIN EARLIER THIS SHIFT.
--- NOTE | 2021-12-07 05:23 | NUR ---
NOTE PT REFUSED MORNING LABS AND MEDICATIONS. PT ALSO REFUSED HER MORNING VITAL SIGNS.
[2021-12-07 09:44] LABS: BASOPHILS ABSOLUTE AUTO 0.12 K/mm3 (0.00-0.23); BASOPHILS PERCENT AUTO 1 % (0-2); EOSINOPHILS ABSOLUTE AUTO 2.07 K/mm3 (0.00-0.68); EOSINOPHILS PERCENT AUTO 9 % (0-6); Hematocrit 36.8 % (33.0-51.0); Hemoglobin 12.2 g/dL (11.5-16.0); IMMATURE GRAN ABSOLUTE AUTO 0.25 K/mm3 (0.00-0.10); IMMATURE GRAN PERCENT AUTO 1 % (0-1); LYMPHOCYTES ABSOLUTE AUTO 1.75 K/mm3 (0.84-5.20); LYMPHOCYTES PERCENT AUTO 7 % (21-46); MONOCYTES ABSOLUTE AUTO 1.92 K/mm3 (0.16-1.47); MONOCYTES PERCENT AUTO 8 % (4-13); Mean Corpuscular HGB 28.4 pg (26.0-34.0); Mean Corpuscular HGB Conc 33.2 g/dL (31.5-36.5); Mean Corpuscular Volume 86 fL (80-100); NEUTROPHILS PERCENT AUTO 75 % (41-73); Platelet Count 274 K/mm3 (150-400); RDW Coefficient Variation 13.5 % (11.7-14.2); RDW Standard Deviation 42.4 fL (35.1-46.3); White Blood Cell Count 23.91 K/mm3 (4.00-11.30)
[2021-12-07 10:15] LABS: Albumin, Blood 2.8 g/dL (3.4-5.0); Anion Gap 6 mmol/L (6-16); Blood Urea Nitrogen 32 mg/dL (8-24); Bun/Creatinine Ratio 32.1 (12.0-20.0); CO2, Blood 26 mmol/L (21-32); Chloride, Blood 106 mmol/L (98-108); Glomerular Filtration Rate 54 (60-); Glucose, Blood 107 mg/dL (70-99); Phosphorus, Blood 3.7 mg/dL (2.5-4.9); Potassium, Blood 4.3 mmol/L (3.5-5.5); Sodium, Blood 138 mmol/L (136-145)
--- NOTE | 2021-12-07 12:26 | NUR ---
RN NOTE MS MADERA IS ORIENTATED TO HER OWN NAME AND TO "HOSPITAL" BUT DOES NOT KNOW WHICH ONE OR LOCATION OR DATE. SHE IS FORGETFUL, ASKED SEVERAL TIMES IF SHE CAN GO HOME TODAY. SHE SAID HER NEIGHBORS WILL TAKE CARE OF HER. SHE TALKED TO HER DAUGHTER AND TO THE CHARGE NURSE AND HAS SETTLED AT THIS TIME. NO SOB ON RA, NO CHEST PAIN. SKIN FRAGILE, BRUISES TO ARMS AND LEGS/FEET. DRY SCABS AND LEG DISCOLRATION PRESENT. MEPILEX CHANGED TO SACRAL DECUBITUS, RED, EXCORIATED AND SMALL OPEN AREA. TURNED AND REPOSTIONED IN BED. BED LOW, CALL LIGHT IN REACH.
--- NOTE | 2021-12-07 16:24 | NUR ---
SHIFT SUMMARY PLEASE SEE EARLIER RN NOTE. MS MADERA CHATTED WITH HER VISITORS TODAY. SITTING OUT IN THE CHAIR THIS AFTERNOON WITH CHAIR ALARM ON. NO C/O PAIN OR SOB TODAY. SHE IS FORGETFUL AND CONFUSED, BUT HAS BEEN CALM AND COOPERATIVE MOST OF THE SHIFT. SHE TOOK HER PO MEDS THIS MORNING AND ATE BREAKFAST BUT HARDLY TOUCHED LUNCH TRAY. CALL LIGHT IN REACH.
--- NOTE | 2021-12-08 02:31 | NUR ---
: PATIENT HAS ONLY VOIDED A SCANT AMT. OF URINE. BLADDER SCAN SHOWS [address] ORDER OBTAIN[address] FROM [address] NIXON FOR ZARAGOZA PLACEMENT. ZARAGOZA WAS PLACED, IAN AREA IS SERVERLY EXCORIATED WITH SMALL AMT. OF BLEEDING. PATIENT TOLERATED PROCEEDURE FAIR. PATIENT SETTLED AND IS SLEEPING AT THIS TIME. ZARAGOZA IMEDIATLY PUT OUT OVER 700MLS OF MONICA URINE. URINE CULTURE IS SENT PER PROTOCOL.
[2021-12-08 02:44] LABS: Source, Urine Foley catheter
[2021-12-08 02:48] LABS: Appearance, Urine Clear (Clear); Bilirubin, Urine Neg (Neg); Blood, Urine Neg (Neg); Color, Urine Yellow (P-Yellow); Glucose Qualitative, Urine Neg (Neg); Ketones, Urine 1+ (Neg); Leukocyte Esterase, Urine 1+ (Neg); Nitrite, Urine Neg (Neg); Protein, Urine Neg (Neg); Specific Gravity, Urine 1.015 (1.003-1.022); Urobilinogen, Urine NORM (Normal)
[2021-12-08 03:06] LABS: Red Blood Cells, Urine 0-2 /hpf (0-2); White Blood Cells, Urine 0-2 /hpf (0-5)
[2021-12-08 03:07] LABS: Bacteria Rare /hpf; Squamous Epithelial Cells Few /hpf (Few); Yeast/Fungi Urine Rare /hpf
[2021-12-08 05:29] LABS: BASOPHILS ABSOLUTE AUTO 0.17 K/mm3 (0.00-0.23); BASOPHILS PERCENT AUTO 1 % (0-2); EOSINOPHILS ABSOLUTE AUTO 2.45 K/mm3 (0.00-0.68); EOSINOPHILS PERCENT AUTO 9 % (0-6); Hematocrit 37.6 % (33.0-51.0); Hemoglobin 11.7 g/dL (11.5-16.0); IMMATURE GRAN ABSOLUTE AUTO 0.21 K/mm3 (0.00-0.10); IMMATURE GRAN PERCENT AUTO 1 % (0-1); LYMPHOCYTES ABSOLUTE AUTO 2.25 K/mm3 (0.84-5.20); LYMPHOCYTES PERCENT AUTO 9 % (21-46); MONOCYTES PERCENT AUTO 9 % (4-13); Mean Corpuscular HGB 27.8 pg (26.0-34.0); Mean Corpuscular HGB Conc 31.1 g/dL (31.5-36.5); Mean Corpuscular Volume 89 fL (80-100); NEUTROPHILS ABSOLUTE AUTO 18.68 K/mm3 (1.96-9.15); NEUTROPHILS PERCENT AUTO 72 % (41-73); Platelet Count 247 K/mm3 (150-400); RDW Coefficient Variation 13.7 % (11.7-14.2); RDW Standard Deviation 44.9 fL (35.1-46.3); Red Blood Cell Count 4.21 M/mm3 (3.80-5.20); White Blood Cell Count 25.96 K/mm3 (4.00-11.30)
[2021-12-08 06:01] LABS: Bun/Creatinine Ratio 33.3 (12.0-20.0); Calcium, Blood 8.6 mg/dL (8.5-10.1); Creatinine, Blood 0.99 mg/dL (0.40-1.00); Potassium, Blood 4.5 mmol/L (3.5-5.5)
--- NOTE | 2021-12-08 14:30 | NUR ---
Spiritual Care Visit. Pt. is awake and welcomes my visit. Pt. is unsettled because she soiled her sheets. Listen empathetically with a calming presence. Pt. displays evidence that she is aware of her dementia but is confused as tto why she is "falling apart." Pt. has a friend and advocate come to visit. establish rapport with Pt. tracy fontenot. Prayed with Pt. Pt. and friend jarredbalize gratitude for the spiritual care visit.
--- NOTE | 2021-12-08 18:03 | NUR ---
SHIFT SUMMARY A/O TO SELF AN FAMILY. PLEASANTLY CONFUSED THIS SHIFT. UP TO CHAIR TODAY WITH 2P MAX ASSIST. NO ACUTE CHANGES AT THIS TIME. BED IN LOWEST POSITION WITH CALL LIGHT IN REACH. WILL CONTINUE TO MONITOR AND REPORT TO ONCOMING RN.
--- NOTE | 2021-12-09 07:25 | NUR ---
SHIFT SUMMARY: PATIENT IS ALERT AND ORIENTED TO SELF, VSS, ZARAGOZA IS PATENT FOR AND MONICA URINE. POOR PO INTAKE PERSISTS BUT PATIENT DID EAT 100% OF HER ICE CREAM FOR SNACK. REDDNESS IS IMPROVING IN IAN AREA. BED ALARM IS ON FOR SAFETY.
--- NOTE | 2021-12-09 16:57 | NUR ---
SHIFT SUMMARY PT AXO TO SELF, MOSTLY COOPERATIVE WITH CARE THOUGH FORGETFUL WITH SOME CONFUSION. VSS. PT UP TO CHAIR THROUGOUT THE SHIFT. PT INSISTS ON SLEEPING WITH HEAD RESTING ON TRAY TABLE. MEDICATED FOR AGGITATION X1 THIS SHIFT. COCCXY MEPILEX CHANGED THIS SHIFT. SKIN BREAKDOWN TO COXXY AND IAN AREA NOTED. ZARAGOZA PATENT AND DRAINING. POOR APPETITE, REFUSING MEALS. ABOUT 300ML OUT SO FAR THIS SHIFT. CHAIR ALARM ON, CALL LIGHT WITHIN REACH, BED IN LOW POSITION. NO AM LABS.
--- NOTE | 2021-12-10 02:48 | NUR ---
ALERT TO SELF. CALM AND COOPERATIVE. 2X ASSIST WITH FWW AND GAITBELT. DENIES PAIN AT THIS TIME. FOAM COCCYX DRESSING CDI. ZARAGOZA CATH PATENT. BED ALARM SET, CALL LIGHT IN REACH; ENCOURAGED TO MAKE NEEDS KNOWN.
--- NOTE | 2021-12-10 17:38 | NUR ---
SHIFT SUMMMARY PT AxOx3 WITH INTERM FORGETFULNESS/CONFUSION/PARANOID BEHAVIOR. PT IS PAINFUL WITH MOVEMENT AND FEARFUL TO GET UP. PT HAS DIFFICULTY FOLLOWING DIRECTIONS DURING TRANSFERS AND REPEATS "I CAN'T DO THIS." PT IS HAVING A POOR APPETITE. PT FRIENDS IN FOR VISIT THIS SHIFT. PT FAMILY FRIEND, KETAN REPORTS THAT "THEY WILL BE TAKING HER HOME WHEN IT IS TIME FOR DC AND SHE WILL GET HELP AT HOME SO SHE CAN STAY IN HER HOUSE." PT IS CURRENTLY RESTING IN BED WITH CALL LIGHT IN REACH. IAN CARE PERFORMED THIS SHIFT. WOUND CARE CONSULT PLACED, BUT HAS NOT SEEN PT YET.
--- NOTE | 2021-12-11 04:17 | NUR ---
Shift mostly unremarkable. Client was AOx3-4 early in the evening and closer to AOx2 as the evening progressed. Slept through most of the night. Call light left within reach.
[2021-12-11 05:35] LABS: Hematocrit 35.1 % (33.0-51.0); Hemoglobin 11.7 g/dL (11.5-16.0); Mean Corpuscular HGB 28.3 pg (26.0-34.0); Mean Corpuscular HGB Conc 33.3 g/dL (31.5-36.5); Mean Corpuscular Volume 85 fL (80-100); Mean Platelet Volume 11.5 fL (9.1-12.4); Platelet Count 219 K/mm3 (150-400); RDW Coefficient Variation 13.7 % (11.7-14.2); RDW Standard Deviation 42.5 fL (35.1-46.3); Red Blood Cell Count 4.13 M/mm3 (3.80-5.20); White Blood Cell Count 24.71 K/mm3 (4.00-11.30)
[2021-12-11 06:12] LABS: Bun/Creatinine Ratio 35.8 (12.0-20.0); Calcium, Blood 8.5 mg/dL (8.5-10.1); Creatinine, Blood 0.95 mg/dL (0.40-1.00); Potassium, Blood 4.2 mmol/L (3.5-5.5)
--- NOTE | 2021-12-11 17:54 | NUR ---
SHIFT SUMMARY A/O TO SELF AND FAMILY ONLY. PARANOID THIS SHIFT, WANTING TO GO HOME. REFUSED MEDS AND ASSESSMENT. ATTEMPTING TO PULL ON ZARAGOZA TUBING. NEEDS FREQUENT REDIRECTION. VSS, NO ACUTE CHANGES AT THIS TIME. BED IN LOWEST POSITION WITH CALL LIGHT IN REACH. WILL CONTINUE TO MONITOR AND REPORT TO ONCOMING RN.
--- NOTE | 2021-12-12 04:21 | NUR ---
SUMMARY: PT A/O TO SELF, FAMILY AND FOLLOWING INSTRUCTIONS BUT IS FORGETFULL AT TIMES TO SURROUNDINGS W/REMINDERS PROVIDED PRN. SHE INITIALLY WAS NONCOMPLIANT W/MEDS AND ASSESSMENT BUT WHEN RATIONALE AND EXPLANATION WERE PROVIDED SHE BECAME AGREEABLE. ZARAGOZA IS PATENT/DRAINING AND TURN SCHEDULE MAINTAINEF FOR STAGE 2 COCCYX SORE, MEPILEX IS C/D/I. BED ALARM ON FOR POSSIBLE IMPULSIVITY. NO ACUTE CHANGES, VSS/AFEBRILE. GUARDIANSHIP AND PLACEMENT PENDING. WCTM AND REPORT TO DAY RN.
--- NOTE | 2021-12-12 18:26 | NUR ---
SHIFT SUMMARY PT MORE COMPLIANT WITH EATING HER MEALS FOR LUNCH AND DINNER TODAY. PT HAD ONE EPISODE OF AGITATION THAT LASTED ONLY 30 MINUTES OR SO. PT WAS REORIENTED AND NOW COMPLIANT WITH CARE AT THIS TIME. REFUSES CARE AT TIMES. REFUSED SOME ORAL AM MEDS. PICTURES OF IAN AREA & SACRUM UPDATED AND SHOWN TO DR. FORREST. ZINC OXIDE CREAM ADDED TO PT EMAR FOR TREAMENT OF EXCORIATED IAN AREA. PT FRIEND IN TO VISIT TODAY. PT ATTEMPTED TO WORK WITH OCCUPATIONAL THERAPY TODAY. UNABLE TO GET OUT OF BED DUE TO DIZZINESS AND WEAKNESS, DR. FORREST AWARE OF THIS WELL. NO OTHER ACUTE CHANGES IN ASSESSMENT AT THIS TIME.VS REVIEWED. PT RESTING IN BED. CALL LIGHT IN REACH.
--- NOTE | 2021-12-13 04:49 | NUR ---
SUMMARY: PT A/O TO SELF, SURROUNDINGS AND FOLLOWING INSTRUCTION. SHE WAS PLEASANT AND COOPERATIVE W/MEDS AND ADL'S BUT IS RESISTANT TO IAN, CATH AND WOUND CARE R/T PAIN. THE ENTIRE REGION IS BRIGHT RED W/EXTREMELY TERRIBLE EXCORIATION, SBD SLOUGHING. SHE ALSO HAS A STAGE 2 COCCYX WOUND. SEE NEW PHOTOS FOR DETAILS. AREA WAS CLEANSED THOROUGHLY W/RX'D ZINC OXIDE AND NYSTATIN POWDER APPLIED PER EMAR AND NEW MEPILEX APPLIED. ZARAGOZA IS PATENT AND DRAINING TO GRAVITY AND TURN SCHEDULE WAS MAINTAINED. SHE ATTEMPTED OOB X1 THIS SHIFT TO SIT IN CHAIR BUT CONT'S TO BE TOO WEAK AND GET TOO DIZZY TO SAFELY T/F. BED ALARM REMAINS ON THOUGHT NO IMPULSIVITY OBSERVED THIS SHIFT. VSS/AFEBRILE AND NO ACUTE CHANGES. WCTM AND REPORT TO DAY RN.
[2021-12-13 05:31] LABS: BASOPHILS ABSOLUTE AUTO 0.09 K/mm3 (0.00-0.23); BASOPHILS PERCENT AUTO 0 % (0-2); EOSINOPHILS ABSOLUTE AUTO 2.59 K/mm3 (0.00-0.68); EOSINOPHILS PERCENT AUTO 10 % (0-6); Hematocrit 35.6 % (33.0-51.0); Hemoglobin 11.6 g/dL (11.5-16.0); IMMATURE GRAN ABSOLUTE AUTO 0.33 K/mm3 (0.00-0.10); IMMATURE GRAN PERCENT AUTO 1 % (0-1); LYMPHOCYTES ABSOLUTE AUTO 1.91 K/mm3 (0.84-5.20); LYMPHOCYTES PERCENT AUTO 8 % (21-46); MONOCYTES PERCENT AUTO 8 % (4-13); Mean Corpuscular HGB 27.9 pg (26.0-34.0); Mean Corpuscular HGB Conc 32.6 g/dL (31.5-36.5); Mean Corpuscular Volume 86 fL (80-100); Mean Platelet Volume 11.8 fL (9.1-12.4); NEUTROPHILS ABSOLUTE AUTO 18.26 K/mm3 (1.96-9.15); NEUTROPHILS PERCENT AUTO 73 % (41-73); Platelet Count 196 K/mm3 (150-400); RDW Coefficient Variation 13.6 % (11.7-14.2); RDW Standard Deviation 42.4 fL (35.1-46.3); Red Blood Cell Count 4.16 M/mm3 (3.80-5.20); White Blood Cell Count 25.18 K/mm3 (4.00-11.30)
[2021-12-13 06:03] LABS: Albumin, Blood 2.5 g/dL (3.4-5.0); Anion Gap 8 mmol/L (6-16); Blood Urea Nitrogen 30 mg/dL (8-24); Bun/Creatinine Ratio 31.6 (12.0-20.0); CO2, Blood 25 mmol/L (21-32); Calcium, Blood 8.9 mg/dL (8.5-10.1); Chloride, Blood 108 mmol/L (98-108); Creatinine, Blood 0.95 mg/dL (0.40-1.00); Glomerular Filtration Rate 58 (60-); Glucose, Blood 102 mg/dL (70-99); Phosphorus, Blood 3.3 mg/dL (2.5-4.9); Potassium, Blood 4.1 mmol/L (3.5-5.5); Sodium, Blood 141 mmol/L (136-145)
--- NOTE | 2021-12-13 20:04 | NUR ---
SUMMARY- PT A/O X2-3, FORGETFUL AND CONFUSED. PT GOT UP TO CHAIR WITH A MAX 2 PIVOT TX WITH GAIT BELT, HEAVY TX. PT TOO PAINFUL TO SIT RELATED TO IAN RASH. OBTAINED ULTRAM FOR DISCOMFORT WHICH SEEMED HELPFUL. PT HAS NO APPETITE AND REFUSED MEALS. PUSHED FLUIDS, TOLERATING FLUIDS FAIR BUT WITH MUCH COAXING. SWALLOW INTACT. PT HAS CRACKLES IN BASES. URINE CONCENTRATED/DARK. 2 FRIENDS CAME TO VISIT TODAY.
--- NOTE | 2021-12-14 04:09 | NUR ---
SHIFT SUMMARY PATIENT HAD NO ACUTE CHANGES OBSERVED. AXOX 2-3 AND BEDREST. TAKES MEDICATION WHOLE WITH APPLESAUCE. NO IV ACCESS. ZARAGOZA PATENT AND DRAINING TO GRAVITY. VSS/AFEBRILE. DENIES PAIN, SOB, AND N/V. COOPERATIVE WITH ASSESSMENT AND MEDICATION ADMINISTRATION. SLEPT MOST OF SHIFT. CALL LIGHT IN REACH. BED IN LOWEST POSITION AND BED ALARM ACTIVATED. WILL CONTINUE TO MONITOR UNTIL DAY SHIFT NURSE ASSUMES CARE.
--- NOTE | 2021-12-14 14:17 | NUR ---
Spiritual Care Visit. Pt. is awake in bed and welcomes my visit. Pts. good friend Rona is present. Pt. is pleasant but displays a greater evidence of somnolence since my last visit last week. Re-establish rapport and pray for Pt. While Patient dozed engaged in pastoral support for Pts. friend. Both Pt. and friend verbalize gratitude for the spiritual care visit.
--- NOTE | 2021-12-14 19:53 | NUR ---
SUMMARY- PT A/O X2-3. DEPENDANT IN ADL'S, ROUTINE TURNS. LITTLE APPETITE, REFUSING MOST ANY SOLIDS. TOOK IN ABOUT A HALF A BOWL OF SOUP ALL DAY. TOLERATING FLUIDS WITH CUING ONLY. ZARAGOZA PATENT MED CLEAR YELLOW. CONT BRIGHT REDNESS TO GROIN AND BUTTOCK. STARTED ON ORAL DIFLUCAN. CONT TO APPLY ZINC CREAM AND MICONAZOLE, NONBORDER MEPILEX TO OPEN ULCERATION. OT UNABLE TO WORK WITH PT TODAY, SO RN AND PHARMACY TECH GOT PT UP WITH GAIT BELT, PIVOT TX MAX ASSIST TO CHAIR. PT VERY PAINFUL IN GLUT AREA WHEN UP IN CHAIR. MEDICATED X2 TODAY WITH ULTRAM WITH RELEIF OF GROIN/GLUT PAIN. [address] RUG CLEANER CAME TODAY FOR PLACEMENT- PENDING- COURT/GUARDIAN CAME TO SEE PT TO [facility] FOR GUARDIANSHIP. GAVE SEROQUEL PM DOSE RELATED TO PT AGITATION- PT VERY SLEEYPY WHEN STAFF ASSISTED HER OUT OF CHAIR TO BED. REPORT TO ORESTES ASKEW
--- NOTE | 2021-12-15 04:45 | NUR ---
SHIFT LARGELY UNREMARKABLE. HELD NIGHT TIME DOSE OF SEROQUEL DUE TO RESIDUAL SOMNOLENCE FROM DOSE FROM PREVIOUS SHIFT. PATIENT SLEPT THROUGH MOST OF NIGHT AND TOOK PRESCRIBED MEDICATIONS WITHOUT DIFFICULTY. AMBULATED TO CHAIR ONCE THROUGHOUT NIGHT, HEAVY ASSIST PATIENT IS VERY ANXIOUS WITH AMBULATION. CALL LIGHT LEFT WITHIN REACH.
[2021-12-15 05:38] LABS: Hematocrit 36.4 % (33.0-51.0); Hemoglobin 11.8 g/dL (11.5-16.0); Mean Corpuscular HGB Conc 32.4 g/dL (31.5-36.5); Mean Corpuscular Volume 87 fL (80-100); Mean Platelet Volume 11.8 fL (9.1-12.4); Platelet Count 216 K/mm3 (150-400); RDW Coefficient Variation 13.8 % (11.7-14.2); RDW Standard Deviation 43.8 fL (35.1-46.3); Red Blood Cell Count 4.21 M/mm3 (3.80-5.20); White Blood Cell Count 30.88 K/mm3 (4.00-11.30)
[2021-12-15 05:59] LABS: Albumin, Blood 2.7 g/dL (3.4-5.0); Anion Gap 8 mmol/L (6-16); Blood Urea Nitrogen 30 mg/dL (8-24); Bun/Creatinine Ratio 31.4 (12.0-20.0); CO2, Blood 24 mmol/L (21-32); Chloride, Blood 106 mmol/L (98-108); Creatinine, Blood 0.95 mg/dL (0.40-1.00); Glomerular Filtration Rate 58 (60-); Glucose, Blood 113 mg/dL (70-99); Phosphorus, Blood 3.3 mg/dL (2.5-4.9); Potassium, Blood 4.3 mmol/L (3.5-5.5); Sodium, Blood 138 mmol/L (136-145)
--- NOTE | 2021-12-15 08:00 | NUR ---
PT PLEASANT THIS AM. TALKATIVE, BUT QUITE CONFUSED. KNOWS NAME, NO DETAILS RECOGNIZES FAMILY. H/R REG, NO MURMUR NOTED. NO TELE. LUNGS CLEAR, RESP EASY, UNLABORED. ON R/A. B/T X4 LAST B/M UNKNOWN BY PT. VOIDS DARK MONICA URINE IN ZARAGOZA CATH. PT IS WEAK, 2 ASST. TURN Q2. GROIN RED, EXCORIATED. SCABS NOTED ON LEGS. BED IN LOW POSITION, CALL LITE IN REACH, BED ALARM ON FOR SAFETY
--- NOTE | 2021-12-15 17:58 | NUR ---
PT HAS BEEN QUITE PLEASANT AND CONFUSED TODAY. 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 DESPITE ME SHOWING HER MY BADGE AND REMINDING HER. SHE IS ORIENTED TO SELF AND FAMILY, BUT NOT ABLE TO TELL ME DETAILS ON CURRENT EVENTS. BOTTOM SORE CONTINUES . WE ARE TURNING AND PUTTING MICONAZOLE ON GROIN AREA. PENDING GUARDIANSHIP AND PLACEMENT. BED IN LOW POSITION, CALL LITE IN REACH, BED ALARM ON FOR SAFETY
--- NOTE | 2021-12-16 04:54 | NUR ---
SHIFT LARGELY UNREMARKABLE. CLIENT WAS AOX2 DURING SHIFT ASSESSMENT AND FIXATED ON IDEA OF DYING, SEEMED ANXIOUS. REASSURED HER THAT WE WOULD PROVIDE THE BEST CARE POSSIBLE TO HELP HER HEAL FROM CURRENT CONDITION WHICH SEEMED TO PUT HER AT EASE A BIT. PATIENT SLEPT THROUGH REMAINDER OF SHIFT AFTER NIGHTTIME SEROQUEL ADMINISTRATION. CALL LIGHT LEFT WITHIN REACH.
--- NOTE | 2021-12-16 17:05 | NUR ---
SHIFT SUMMARY PATIENT DENIES PAIN, NAUSEA, AND SHORTNESS OF BREATH. PATIENT IS A 2P FOR TRANSFERS. PATIENT ZARAGOZA WAS REMOVED YESTERDAY, NIGHTSHIFT REPORTS NO VOID. BLADDER SCAN AT 0800 WAS 300MLS. BY 1300 PATIENT STILL HAD NO VOIDED, BLADDER SCAN SHOWED 450MLS. DR. ALVAREZ NOTIFIED, NEW ORDERS FOR STRAIGHT CATH Q6 NEEDED FOR BLADDER SCANS OVER 400MLS. PATIENT STRAIGHT CATHED WITH 450MLS OUTPUT. URINE WAS MONICA COLORED WITH A FOUL ORDOR. PATIENT HAS BEEN SLEEPING ON AND OFF THIS SHIFT. PATIENT IS EATING AND DRINKING WELL. COCCYX IS RED AND EXCORIATED, CREAM AND MEPILEX APPLIED. GROIN IS ALSO RED AND EXCORIATED, CLEANED AND CREAM APPLIED. PATIENT IS PLEASANT AND COOPERATIVE WITH CARE.
--- NOTE | 2021-12-17 03:13 | NUR ---
CRUSHING MACHINE OPERATOR SUMMARY VSS. TOLERATED HS MEDS WELL. ABLE TO REPOSITION SELF IN BED WITHOUT ASSIST. HAS BEEN RESTING QUIETLY WITH OCCASIONAL INTERRUPTIONS. BLADDER SCAN A FEW MINUTES AGO: "0". NO APPARENT S/S ACUTE DISTRESS. CALL LIGHT IN REACH. WILL CONTINUE TO MONITOR
--- NOTE | 2021-12-17 17:20 | NUR ---
SHIFT SUMMARY PATIENT DENIES PAIN, NAUSEA, AND SHORTNESS OF BREATH. PATIENT IS A 2P FOR TRANSFERS AND REPOSITIONING. PATIENT DID NOT VOID TODAY, BLADDER SCAN AT 1400 SHOWED 410. STRAIGHT CATH PERFORMED WITH 400MLS OUTPUT. PATIENT HAD VISITORS TODAY. PATIENT SLEPT ON AND OFF. PATIENT HAD GOOD PO INTAKE TODAY AFTER MUCH ENCOURAGMENT. PATIENT PLEASANT AND COOPERATIVE WITH CARE.
--- NOTE | 2021-12-18 05:18 | NUR ---
PT IS A/OX2, PLEASANT AND COOPERATIVE. THE PT APPEARS TO BE BREATHING EASILY ON RA AT THIS TIME. THE PT APPEARED TO HAVE FALLEN ASLEEP AROUND 2200 AND AWOKE ONLEY BRIEFLY T/O THE NIGHT AFTER THAT. THE PT WAS BLADDER SCANNED THIS AM AND ONLY HAD 49 CC RESIDUAL. CALL LIGHT IN REACH. WILL CONTNUE TO MONITOR AND ASSESS FOR CHANGES
--- NOTE | 2021-12-18 18:10 | NUR ---
PATIENT WILL BE GOING TO [facility] PER HEALTH DIRECTOR. THIS SHIFT, DRESSING ON COCCYX WAS CHANGED. PAINFUL FOR THE PATIENT. SHE WAS GIVEN PRN TYLENOL AND SLEPT AFTERWARD. APPETITE WAS POOR THIS SHIFT, BUT MOOD WAS PLEASANT. SHE IS CONFUSED AND SOMEWHAT FOCUSED ON HAVING TO GO TO [place]. A FEW SCATTERED CRACKLES WERE HEARD IN LUNGS- NO COUGHING WAS NOTICED. PATIENT DENIES SOB OR CHEST PAIN. PATIENT WAS BLADDER SCANNED WITH LITTLE IN. SHE DID VOID IN HER BRIEF THIS SHIFT.
--- NOTE | 2021-12-19 04:37 | NUR ---
SHIFT LARGELY UNREMARKABLE. CLIENT SLEPT THROUGH MOST OF NIGHT AFTER NIGHT TIME SEROQUEL DOSAGE. WOKE BRIEFLY IN THE NIGHT BUT SPEECH WAS GARBLED AND WAS UNABLE TO ADEQUATELY CONVEY ANY COMPLAINTS OR DESIRES. PATIENT WENT BACK TO SLEEP AFTER REPOSITIONING. CALL LIGHT LEFT WITHIN REACH.
--- NOTE | 2021-12-19 13:00 | NUR ---
PROVIDER NOTIFIED OF UNCONTROLLED, GENERALIZED PAIN. NO NEW ORDERS RECEIVED.
--- NOTE | 2021-12-19 17:27 | NUR ---
SHIFT SUMMARY PT IS AOX3-4. PT HAS HAD TO VISITOR AT THE BS TODAY. HER MEPALEX HAS BEEN CHANGED TWICE TODAY. SHE HAS BEEN PLEASANT AND COOPERATIVE. THE PLAN IS FOR HER TO GO TO [facility] ON SATURDAY.
--- NOTE | 2021-12-19 18:20 | NUR ---
BLADDER SCAN INDICATED LESS THAN 400 ML, NO STRAIGHT CATH PERFORMED.
--- NOTE | 2021-12-20 04:18 | NUR ---
SHIFT UNREMARKABLE. CLIENT SLEPT THROUGH THE NIGHT AFTER 2100 DOSE OF SEROQUEL. PATIENT WAS AGREEABLE AND COOPERATIVE THROUGHOUT SHIFT. CALL LIGHT LEFT WITHIN REACH.
--- NOTE | 2021-12-20 14:28 | NUR ---
CALCIUM ALGINATE APPLIED TO COCCYX WOUND. NEW MEPALEX APPLIED DURING BRIEF CHANGE.
--- NOTE | 2021-12-20 17:24 | NUR ---
SHIFT SUMMARY PT HAS BEEN SLEEPING A MAJORITY OF THE SHIFT. SHE AROUSED WHEN A FRIEND VISITED TODAY. SHE WAS MEDICATED IN THE AM FOR PAIN AND HAS NOT C/O PAIN FOR THE REST OF THE SHIFT. PT WAS BLADDER SCANNED WHICH INDICATED A STRAIGHT CATH, SHE DID NOT TOLERATE IT WELL. THE PLAN IS FOR HER TO BE DISCHARGED TO [place] TOMORROW.
--- NOTE | 2021-12-21 04:45 | NUR ---
STONE GANG SAWYER SUMMARY NO ACUTE CHANGES. PT RESTED T/O THE NIGHT; EPISODES OF CALLING OUT OR TALKING LOUDLY IN HER SLEEP. REPOSITIONED PT Q2 HOURS. BLADDER SCAN AT 2230 SHOWED 276 MLS URINE IN BLADDER; WILL CONT TO MONITOR AND SCAN AGAIN. PT DENIES PAIN THIS SHIFT; PT WITHDRAWN AND AFFECT DEPRESSED; PT MADE STATEMENTS OF FEELING HELPLESS. PT HAS WATER AT BEDSIDE BUT INTAKE IS VERY POOR.
[2021-12-21 06:29] LABS: Hematocrit 32.1 % (33.0-51.0); Hemoglobin 10.7 g/dL (11.5-16.0); Mean Corpuscular HGB 27.9 pg (26.0-34.0); Mean Corpuscular HGB Conc 33.3 g/dL (31.5-36.5); Mean Corpuscular Volume 84 fL (80-100); Mean Platelet Volume 11.8 fL (9.1-12.4); Platelet Count 217 K/mm3 (150-400); RDW Coefficient Variation 14.1 % (11.7-14.2); RDW Standard Deviation 43.2 fL (35.1-46.3); Red Blood Cell Count 3.84 M/mm3 (3.80-5.20); White Blood Cell Count 25.61 K/mm3 (4.00-11.30)
[2021-12-21 06:58] LABS: Albumin, Blood 2.3 g/dL (3.4-5.0); Anion Gap 11 mmol/L (6-16); Blood Urea Nitrogen 45 mg/dL (8-24); Bun/Creatinine Ratio 45.5 (12.0-20.0); CO2, Blood 18 mmol/L (21-32); Calcium, Blood 9.3 mg/dL (8.5-10.1); Chloride, Blood 105 mmol/L (98-108); Creatinine, Blood 0.99 mg/dL (0.40-1.00); Glomerular Filtration Rate 55 (60-); Glucose, Blood 102 mg/dL (70-99); Phosphorus, Blood 3.8 mg/dL (2.5-4.9); Potassium, Blood 4.3 mmol/L (3.5-5.5); Sodium, Blood 134 mmol/L (136-145)
[2021-12-21 10:29] LABS: SARS-Cov-2 (COVID-19) PCR, MMC NEGATIVE (NEGATIVE)
[2021-12-21 13:50] LABS: Source, Urine Foley catheter
[2021-12-21 13:53] LABS: Appearance, Urine Cloudy (Clear); Bilirubin, Urine Neg (Neg); Blood, Urine 2+ (Neg); Color, Urine Yellow (P-Yellow); Glucose Qualitative, Urine Neg (Neg); Ketones, Urine 1+ (Neg); Leukocyte Esterase, Urine 3+ (Neg); Nitrite, Urine Neg (Neg); Protein, Urine 1+ (Neg); Specific Gravity, Urine 1.015 (1.003-1.022); Urobilinogen, Urine NORM (Normal)
[2021-12-21 14:07] LABS: Bacteria Many /hpf; Granular Casts 0-2 /lpf (0); Hyaline Casts 0-2 /lpf (0-2); Squamous Epithelial Cells Mod /hpf (Few); White Blood Cells, Urine 50-100 /hpf (0-5)
--- NOTE | 2021-12-21 17:07 | NUR ---
Spiritual Care Visit. Pt.is awake and welcomes my visit. Pts. housekeeping room inspector is present. Soon after I arrive Palliative Care team paid a visit. Pt. is pleasant. Rapport is re-established. Pt. displays evidence of difficulty in putting thoughts to words, but retains a sense of humor. Prayed with Pt. and Pts. housekeeping room inspector. Spent balance of the visit in pastoral care and normalizing the Pt. experience. Pt. verbalized gratitude for the spiritual care visit.
--- NOTE | 2021-12-21 17:19 | NUR ---
Brief supportive visit this evening. Spoke with Dr Green and discussed case. Guardian may benefit from discussion regarding Pt's code status wishes. Pt resting in bed and pleasantly confused. Pt denies pain at this time. Wanalondra Mora in to offer spirtial care. Called and spoke with guardian Rosa. Provided update and engaged in therapeutic conversation regarding code status. Rosa reports Pt is a DNR and is agreeable to come in tomorrow to complete POLST. Brief gentle advanced care planning discussion including planning for the future. Rosa expresses appreciation and report no other concerns at this time. Changed Pt's code status to DNR per V/O from Dr Green. Palliative Care will remain available.
--- NOTE | 2021-12-21 17:48 | NUR ---
SHIFT SUMMARY PT AOX1 AT THE START OF THE SHIFT BUT HAS IMPROVED. SHE WAS PRESRIBED IV FLUIDS AND A ZARAGOZA CATHETER AFTER BEING SEEN BY THE PROVDER. HER MENTATION HAS IMPROVED TO AOX2-3. HER STATUS WAS CHANGED TODAY TO DNR. THIS TOOK PLACE WITH BOTH HER GUARDIAN AND PALLIATIVE CARE PRESENT. SHE HAD ONE FRIEND AT THE BS TODAY. SHE CONTINUES TO REST AND WATCH TELEVISION. CURRENTLY CALLING A FRIEND ON THE PHONE.
--- NOTE | 2021-12-21 18:13 | NUR ---
DNR band verified with JAMILAH Abdullahi. Placed on wrist.
--- NOTE | 2021-12-22 03:49 | NUR ---
SPOOLING SUPERVISOR SUMMARY PT MORE ALERT/BRIGHT AT THE BEGINNING OF SHIFT THAN PREVIOUS SPOOLING SUPERVISOR; DAY SHIFT STARTED FLUIDS AND INSERTED ZARAGOZA CATHETER. PT REPORTED FEELING BETTER; MAKING MORE SENSE AND CLEARER SPEECH. FINISHED 1LITER OF NS; IV SALINE LOCKED. FURTHER INTO THE SHIFT PT BECAME TIRED AND LESS ALERT/CLEAR. PT SLEEPS SHE MOANS; DENIES PAIN. PT HAS A LOOSE BM; PT ANXIOUS ABOUT MOVEMENT AND REQ WAITING TO CHANGE/CLEAN HER; EDUCATION ABOUT IMPORTANCE OF IAN CARE; PT AGREED TO CARE. PT CALL LIGHT IS IN REACH BUT HAS NEVER USED CALL LIGHT TO ADVOCATE FOR NEEDS DURING SHIFT. PT ORAL INTAKE IS VERY POOR. CONT W/Q2 TURNS T/O THE NIGHT. BED LOCKED/ALARM SET.
[2021-12-22 05:38] LABS: Anion Gap 11 mmol/L (6-16); Blood Urea Nitrogen 39 mg/dL (8-24); Bun/Creatinine Ratio 49.3 (12.0-20.0); CO2, Blood 19 mmol/L (21-32); Calcium, Blood 8.9 mg/dL (8.5-10.1); Chloride, Blood 107 mmol/L (98-108); Creatinine, Blood 0.79 mg/dL (0.40-1.00); Glomerular Filtration Rate 72 (60-); Glucose, Blood 96 mg/dL (70-99); Phosphorus, Blood 3.1 mg/dL (2.5-4.9); Potassium, Blood 4.7 mmol/L (3.5-5.5); Sodium, Blood 137 mmol/L (136-145)
[2021-12-22] MEDS ORDERED: ELIQUIS5 M2 PO (12:19)
[2021-12-22] MEDS ORDERED: ACET325 PO (12:19)
[2021-12-22] MEDS ORDERED: QUETIAPINE FUMA50 M6 PO (12:20)
[2021-12-22] MEDS ORDERED: MIRALAX17 GM PO (12:20)
[2021-12-22] MEDS ORDERED: MICO100S TOP (12:20)
[2021-12-22] MEDS ORDERED: VITAMIN D31000 UNI1 PO (12:21)
[2021-12-22] MEDS ORDERED: TRAM50 PO (12:21)
--- NOTE | 2021-12-22 13:42 | NUR ---
PATIENT DISCHARGED TO [facility] VIA [facility] [place]. IV SALINE LOCK REMOVED WITHOUT INCIDENT. PT UNABLE TO VERBALIZE UNDERSTANDING OF D/C INSTRUCTIONS D/T DEMENTIA. ZARAGOZA CATHETER IN PLACE FOR URINARY RETENTION. DRESSED IN OWN CLOTHING. OFF UNIT VIA AMBULANCE AT 1335. NO BELONGINGS LEFT IN ROOM.
== END 2021-12-22 13:38 | DRG 871 ==
LOC: ER 08:21 → MEDS 12:08
PROVIDERS: Internal Medicine; Nurse Practitioner Acute Care; Physician Assistant; ADMIT Hospitalist
DX: A41.51 Sepsis due to Escherichia coli [E. coli] (principal); G92.8 Other toxic encephalopathy; N39.0 Urinary tract infection, site not specified; N17.9 Acute kidney failure, unspecified; I50.32 Chronic diastolic (congestive) heart failure; Z16.29 Resistance to other single specified antibiotic; I82.5Z1 Chronic embolism and thrombosis of unspecified deep veins of right distal lower extremity; I82.491 Acute embolism and thrombosis of other specified deep vein of right lower extremity; E86.0 Dehydration; E03.9 Hypothyroidism, unspecified; Z66 Do not resuscitate; Z20.822 Contact with and (suspected) exposure to COVID-19; J44.9 Chronic obstructive pulmonary disease, unspecified; R65.20 Severe sepsis without septic shock; L89.152 Pressure ulcer of sacral region, stage 2; B37.2 Candidiasis of skin and nail; R33.9 Retention of urine, unspecified; M13.861 Other specified arthritis, right knee; R62.51 Failure to thrive (child); F03.90 Unspecified dementia, unspecified severity, without behavioral disturbance, psychotic disturbance, mood disturbance, and anxiety; Z90.710 Acquired absence of both cervix and uterus; Z98.49 Cataract extraction status, unspecified eye; Z96.643 Presence of artificial hip joint, bilateral; L30.4 Erythema intertrigo; I11.0 Hypertensive heart disease with heart failure; Z68.24 Body mass index [BMI] 24.0-24.9, adult; I82.461 Acute embolism and thrombosis of right calf muscular vein
CPT/HCPCS: 36415; 70450; 71045; 71046; 73060; 73502; 73562-RT; 80048; 80053; 80069; 81001; 83690; 84443; 85025; 85027; 87040; 87077; 87086; 87186; 93970; 94640; 94760; 96365; 96366; 96367; 96375; 97110; 97116; 97162; 97166; 97530; 97535; 99285-25; A9270; J0360; J1200; J1644; J1956; J7030; P9612; U0004